=== PATIENT | female | born 1995 | race Caucasian/White ===

== ENCOUNTER 2021-08-16 09:44 | Emergency (ER) | payer OTHER, SELFPAY ==
[2021-08-16 11:29] VITALS: BP 148/88; PULSE 70; RESP 16; TEMP 36.3; O2SAT 100; BMI 36.6
--- NOTE | 2021-08-16 11:43 | HMH.EDUTC ---
[facility] [place] Clinical Impression: Laceration Disposition: Home, Self-Care Condition on Discharge: Good Instructions: How to Care for a Laceration After Repair, DI for Laceration Repair Additional Instructions: Suture instructions: You have required stitches today. Please read the following instructions so you know how to care for them: 1. Keep wound area dry for the first 24 hours. 2 May clean gently with mild soap and water, after 48 hours to prevent crusting over suture knots. 3. You may shower if your provider gives permission but do not take a bath until the skin is healed.. 4. Never leave a wet dressing or Band-Aid on your stitches as this allows bacteria to reach the area and may cause infection. Band-aids can cause the wound to sweat and not recommended to wear for long periods of time Watch for signs of infection: Increasing redness, tenderness or warmth around the suture site Unusual swelling around the site Appearance of pus around each suture or any red streaks Fever If you develop any of the above signs or symptoms of infection, Follow up with Family Physician immediately 5. Suture removal in _7-10___days 6. Return to [facility] or follow up with family doctor for removal. This can be done by any medical provider during regular hours on Sunday through Sunday, by appointment. Prescriptions: Amoxicillin/Potassium Clav [Amox-Clav 875-125 mg Tablet] 1 tab PO BID #14 tab Transmission Status: Received by [id number] Referrals: Provider,Referral, [Primary Care Provider] - As needed Time of Disposition: 13:08 Medical Decision Making - Mariano Inquiry Pt receiving controlled substance: No Mariano was queried for this patient: No Vital Signs: 08/16/21 11:29 Temperature 97.4 F L Temperature Source Temporal Artery Scan Pulse Rate [Left] 70 Respiratory Rate 16 Blood Pressure [Right Arm] 148/88 H Blood Pressure Mean [Right Arm] 108 02 Sat by Pulse Oximetry 100 Orders (Tests/Meds): ED MEDICATIONS Discontinued Medications Generic Name Dose Route Start Last Admin Trade Name Freq PRN Reason Stop Dose Admin Lidocaine HCl 2 ml 08/16/21 13:00 Lidocaine 1% Pf 2ml Ampule SQ 08/16/21 13:01 ONCE ONE Tetanus/Reduced Diphtheria/Acell Pertussis 0.5 ml 08/16/21 12:50 Tet/Diphth/Pert-Adult 0.5ml Syringe IM 08/16/21 12:51 .ONCE ONE [facility] HPI - General Stated complaint: dog bite 08/16 lt breast Time Seen by Provider: 08/16/21 11:43 Mode of Arrival: Ambulatory Source of Information: Patient Limitations: No Limitations Description of Symptoms (Recalled from Triage Doc. by RN): pt states her dogs were fighting this am. when she tried to break the up she was bitten by her lab. pt presents with a lac about an inch long on the bottom part of her L areola. HEENT Symptoms (Recalled from RN notes): No Resp Symptoms (Recalled from RN notes): No Skin Symptoms (Recalled from RN notes): Yes MS Symptoms (Recalled from RN notes): No Functional Status (Recalled from RN notes): wnl - History of Present Illness Provider Complaint: Patient states that she was at home when two of her dogs started fighting States that she was trying to seperate them when her lab snapped at the other dog but bite her on the left breast just below her nipple States that she noticed she had a laceration there about an inch long so she came in to get it checked out - Related Data Previous Rx's Medication Instructions Recorded Amoxicillin/Potassium Clav 1 tab PO BID #14 tab 08/16/21 [Amox-Clav 875-125 mg Tablet] Allergies Allergy/AdvReac Type Severity Reaction Status Date / Time acetaminophen [From Tylenol] Allergy Verified 08/16/21 11:38 - Worker's Comp Is this a Worker's Comp case?: No [facility] History - Hepatitis A Screen Drug use history?: No High risk sexual behaviors?: No History of sexually transmitted infection?: No Currently employed?: No Childcare worker?: No Do you have i
[2021-08-16 13:20] VITALS: BP 148/88; PULSE 70; RESP 16; TEMP 36.3
[2021-08-16 13:43] LABS: UTC Pregnancy Test, Urine Negative (Negative)
== END 2021-08-16 13:22 | disposition home or self-care (01) ==
PROVIDERS: Emergency Provider Nurse Practitioner
DX: S21.012A Laceration without foreign body of left breast, initial encounter (principal); W54.0XXA Bitten by dog, initial encounter; Y92.019 Unspecified place in single-family (private) house as the place of occurrence of the external cause; Z23 Encounter for immunization
CPT/HCPCS: 12001; 81025; 90471; 96372; 99213; G0463

== ENCOUNTER → 2021-11-23 11:59 | Outpatient (CLI) | payer OTHER, SELFPAY ==
[2021-11-23 13:15] LABS: HCG,Quantitative 20 mIU/ml (0-5.42)
== END ==
PROVIDERS: Visit Provider Obstetrics & Gynecology
DX: N92.6 Irregular menstruation, unspecified (principal)
CPT/HCPCS: 36415; 84702

== ENCOUNTER → 2021-11-30 10:54 | Outpatient (CLI) | payer OTHER, SELFPAY ==
[2021-11-30 12:05] LABS: HCG,Quantitative 45 mIU/ml (0-5.42)
== END ==
PROVIDERS: Visit Provider Obstetrics & Gynecology
DX: Z34.90 Encounter for supervision of normal pregnancy, unspecified, unspecified trimester (principal)
CPT/HCPCS: 36415; 84702

== ENCOUNTER → 2021-12-02 09:18 | Outpatient (CLI) | payer OTHER, SELFPAY ==
[2021-12-02 10:42] LABS: HCG,Quantitative 82 mIU/ml (0-5.42)
[2021-12-06 09:13] LABS: Progesterone 7.1 ng/mL (.)
== END ==
PROVIDERS: Visit Provider Obstetrics & Gynecology
DX: Z34.90 Encounter for supervision of normal pregnancy, unspecified, unspecified trimester (principal); N92.6 Irregular menstruation, unspecified
CPT/HCPCS: 36415; 84144; 84702

== ENCOUNTER → 2021-12-05 10:37 | Outpatient (CLI) | payer OTHER, SELFPAY ==
[2021-12-05 11:45] LABS: HCG,Quantitative 28 mIU/ml (0-5.42)
[2021-12-06 09:13] LABS: Progesterone 1.1 ng/mL (.)
== END ==
PROVIDERS: Visit Provider Obstetrics & Gynecology
DX: Z34.90 Encounter for supervision of normal pregnancy, unspecified, unspecified trimester (principal)
CPT/HCPCS: 36415; 84144; 84702

== ENCOUNTER 2022-08-31 12:14 | Emergency (ER) | payer OTHER, SELFPAY ==
[2022-08-31 12:40] VITALS: BP 139/93; PULSE 65; O2SAT 100
[2022-08-31 12:42] VITALS: BP 139/93; PULSE 69; RESP 18; TEMP 36.4; O2SAT 100; BMI 41.5
--- NOTE | 2022-08-31 12:43 | PC.NURSE ---
Spoke with Alyssa in care management regarding patient admission
--- NOTE | 2022-08-31 12:49 | HMH.EDGENADL ---
Discharge Plan Disposition Patient Disposition: Home, Self-Care Prescriptions Prescriptions: No Action norethindrone acetate [Aygestin] 5 mg tablet 5 mg PO DIRECTED Qty: 90 0RF Rx Instructions: 1.Take 1 pill every 4 hours until bleeding has stopped for a full 24 hours. This may take 2-4 days. 2.Then take 1 pill every 6 hours for 2 days. 3.Then take 1 pill every 8 hours for 2 days. 4.Then take 1 pill every 12 hours for the next 21 days. 5.Once Aygestin is finished, expect another cycle within a week. 6.Most common side effects are bloating (fluid retention), and mood swings. Referrals Follow up/Referrals: Provider,Referral, MD [Primary Care Provider] - See instructions Activity Restrictions/Add. Instructions Additional Instructions/Restrictions: Please get your outpatient prescription filled by Dr. Alcantar sent. Your hemoglobin and hematocrit are normal today no signs of any other emergent medical condition please return to the emergency department any worsening of your symptoms otherwise follow-up with [facility] for trial and error of outpatient oral hormone therapy to try to get your dysfunctional uterine bleeding under control. Clinical Impressions Clinical Impression: Abnormal uterine bleeding Discharge ED Provider: Jhoana Davies General Adult HPI General Chief complaint: Vaginal Bleeding Stated complaint: been on period since jul 11, changing pad every hr Time Seen by Provider: 08/31/22 12:49 Mode of Arrival: Ambulatory Source of Information: Patient Limitations: No Limitations Description of Symptoms (Recalled from ER Triage Doc. by RN): Presents via POV d/t ongoing vaginal bleeding since Jun 2022. Pt was seen by Dr. Bobo with US scheduled for 09/06/22. Pt reports worsening bleeding (saturating a pad/hr) and large clots x 3 days. (Dark red blood). Hx of PCOS. 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 Pt called [facility] office prior which instructed her to go to ED for further evaluation. [facility] REP also called in progesterone Rx instructing to start after ED visit. History of Present Illness HPI narrative: 26-year-old female presents today with persistent and worsening vaginal bleeding associate with painful heavy periods. She states that this has been going on for several years she has a known history of PCOS since she moved to [place] a few years ago and has been followed by Dr. Bobo where she has an outpatient ultrasound scheduled. She has had ongoing bleeding for this. Since June and has been relatively mild up until 3 days ago when she started bleeding through 1 pad per day. She has associated abdominal pain which is consistent with heavy painful. She has had in the past. She does not carry a diagnosis of endometriosis that she is aware of. She also called Dr. Alcantar today had a prescription of progesterone that was sent into her pharmacy which she was instructed to get after she comes to the emergency department today. She does feel little bit weak and lightheaded but otherwise is asymptomatic. She has been passing some clots and has not had a urine test during this episode. Before this her last period was in April. Related Data Previous Rx's Medication Instructions Recorded norethindrone acetate 5 mg tablet 5 mg PO DIRECTED #90 tabs 08/31/22 (Aygestin) Allergies Allergy/AdvReac Type Severity Reaction Status Date / Time acetaminophen [From Tylenol] Allergy Verified 08/23/22 15:19 [facility] Disclaimer: The information contained in this section may have been updated after the patient was seen, as this information can be updated by other users. Social History (Updated 08/23/22 @ 15:27 by HEAVENLY Bowman) Smoking Status: Never smoker alcohol intake: never substance use type: denies use current occupational status: employed Travel in the last 8 weeks: None ROS Obtained: Yes All systems reviewed & no additional complaints except as documented Physical Exam Gen
[2022-08-31 12:50] LABS: Microscopic, Urine URINE MICROSCOPIC (MICROSCOPIC)
[2022-08-31 12:53] LABS: Appearance,Urine SL CLOUDY (Clear); Bilirubin,Urine Negative (Negative); Blood, Urine 3+ (Negative); Color,Urine RED (Yellow); Glucose,Urine (UA) Negative (Negative); Ketones,Urine Negative (Negative); Leukocyte Esterase,Urine TRACE (Negative); Nitrate,Urine Negative (Negative); PH,Urine 7.5 (5.0-8.5); Protein,Urine TRACE (Negative); Urobilinogen,Urine 0.2 EU/dl (0.2)
[2022-08-31 12:55] LABS: Urine Pregnancy, HCG Qual. Negative (Negative)
[2022-08-31 13:05] LABS: RBC,Urine 20-50 #/hpf (0-3)
[2022-08-31 13:08] LABS: Basophils # 0.1 K/mm3 (0-0.2); Basophils % 0.6 % (0.1-2.0); Eosinophils # 0.3 K/mm3 (0.0-0.4); Eosinophils % 3.8 % (0.1-12.0); Hemoglobin 13.6 g/dL (12.2-16.2); Lymphocytes # 2.8 K/mm3 (0.7-4.5); Lymphocytes % 31.8 % (10-50); Mean Corpuscular Hemoglobin 27.9 pg (27.0-31.2); Mean Corpuscular Volume 89.9 fl (81-99); Mean Platelet Volume 7.6 fl (7.4-10.4); Monocytes # 0.7 K/mm3 (0.1-1.0); Monocytes % 7.6 % (1.7-9.3); Neutrophils # 4.9 K/mm3 (1.8-7.8); Neutrophils % 56.2 % (37.0-80.0); Platelet Count 348 K/mm3 (142-424); Red Cell Distribution Width 13.4 % (11.5-17.5); White Blood Count 8.7 K/mm3 (4.8-10.8)
[2022-08-31 13:09] LABS: Chloride 104 mmol/L (98-107); Sodium 138 mmol/L (136-145)
[2022-08-31 13:11] LABS: Alanine Aminotransferase 22 U/L (12-78); Aspartate Amino Transferase 25 U/L (14-36); Blood Urea Nitrogen 4 mg/dl (7-17); Creatinine Clearance Estimated 91 mL/min (50-200); Estimated Glomerular Filt Rate 100 ml/min (>60); GFR (African American) 121 ML/MIN (>60)
[2022-08-31 13:12] LABS: Albumin Level 4.5 g/dl (3.5-5.0); Albumin/Globulin Ratio 1.6 (1.1-1.8); Alkaline Phosphatase 73 U/L (38-126); Bilirubin,Total 0.4 mg/dl (0.2-1.3); Calcium 9.1 mg/dl (8.4-10.2); Carbon Dioxide 27 mmol/L (22.0-30.0); Globulin 2.9 g/dL (1.3-3.2); Glucose 83 mg/dl (74-100); Total Protein,Serum 7.4 g/dl (6.3-8.2)
--- NOTE | 2022-08-31 13:25 | PC.NURSE ---
Warm blankets provided. Pt updated on plan of care.
[2022-08-31 13:43] LABS: Thyroid Stimulating Hormone 1.56 uIU/mL (0.465-4.68)
[2022-08-31 14:27] VITALS: BP 131/79; PULSE 61; O2SAT 100
[2022-08-31 14:32] VITALS: BP 131/79; PULSE 60; RESP 16; TEMP 36.6; O2SAT 100
== END 2022-08-31 14:33 | disposition home or self-care (01) ==
PROVIDERS: Emergency Provider Student in an Organized Health Care Education/Training Program
DX: N93.9 Abnormal uterine and vaginal bleeding, unspecified (principal); R10.9 Unspecified abdominal pain
CPT/HCPCS: 80053; 81001; 81025; 84443; 85025; 96360; 96374; 99284; 99285

== ENCOUNTER → 2022-09-06 13:14 | Outpatient (CLI) | payer OTHER, SELFPAY ==
--- NOTE | 2022-09-06 13:14 | US_ITS ---
FINAL REPORT CLINICAL HISTORY: irreg. periods, pcos FINDINGS: Transvaginal sonographic images of the pelvis were obtained. The uterus measures 6.8 x 3.2 x 4.9 cm. The endometrium measures 11 mm. By history, the patient has a bicornuate uterus however not well seen on today's exam. There is an 11 x 6 mm echogenic focus in the endometrium, endometrial polyp is not excluded. The right ovary is normal measuring 2.8 cm. The left ovary is normal measuring 3.2 cm. No adnexal mass is identified. No free fluid is seen. IMPRESSION: Echogenic focus in the endometrium, endometrial polyp is not excluded. Reviewed, Interpreted and Dictated by Gurdeep Aguirre III, MD Transcribed by Diane Kirby Authenticated and [facility]
== END ==
LOC: RAD 13:14
PROVIDERS: Visit Provider Nurse Practitioner Obstetrics & Gynecology
DX: E28.2 Polycystic ovarian syndrome (principal); N92.6 Irregular menstruation, unspecified
CPT/HCPCS: 76830

== ENCOUNTER 2022-11-10 07:14 | Emergency (ER) | payer OTHER, SELFPAY ==
[2022-11-10 07:15] VITALS: BP 146/100; PULSE 83; RESP 16; TEMP 36.5; O2SAT 99; BMI 41.5
--- NOTE | 2022-11-10 07:57 | HMH.EDGENADL ---
Discharge Plan Disposition Patient Disposition: Home, Self-Care Prescriptions Prescriptions: New prednisone 50 mg tablet 50 mg PO DAILY 5 Days Qty: 5 0RF Rx Instructions: Please begin 1 day after ED visit cyclobenzaprine 5 mg tablet 5 mg PO TID PRN (Reason: muscle spasm) 5 Days Qty: 15 0RF No Action ibuprofen 800 mg tablet 800 mg PO Q8H PRN (Reason: pain) 30 Days Qty: 90 0RF Referrals Follow up/Referrals: Provider,Referral, MD [Primary Care Provider] - See instructions Activity Restrictions/Add. Instructions Additional Instructions/Restrictions: Your symptoms are consistent with sciatica most likely from a herniated disc. If your symptoms persist beyond several weeks please follow-up with your primary care doctor or a spine surgeon to get an outpatient MRI. Please return with any lower extremity paralysis numbness between your legs urinary retention or urinary or bowel incontinence. Clinical Impressions Clinical Impression: Sciatica of left side Discharge ED Provider: Nu (ED)Seth General Adult HPI General Chief complaint: PAIN Stated complaint: AO@home 10/13 Lower Back pain LT leg pain Time Seen by Provider: 11/10/22 07:57 Mode of Arrival: Ambulatory Source of Information: Patient Limitations: No Limitations Description of Symptoms (Recalled from ER Triage Doc. by RN): Presents to ED with complaints of atraumatic left sided back pain that radiates down her leg x 3 weeks. Patient reports she went to the chiropractor a week and a half ago with no relief of pain. Patient further reports she has been taking 1,000mg of ibuprofen that was given to her by Miguel for severe periods with no relief. Denies bowel/bladder incontinence. History of Present Illness HPI narrative: Patient is a 26-year-old female presenting today with left sided back pain that is radiating down her left leg for the last 3 days. She states that she threw her back out 3 weeks ago but that is been pain in her SI joint its been localized and this is a common phenomenon for her. However over the last 3 days she is having radiating pain down the left lateral and posterior aspect of her leg shooting all the way down past her knee. She is having difficulty getting comfortable. She has no saddle anesthesia or urinary retention urinary or bowel incontinence lower extremity weakness history of injection drug use fevers or cancer. She has been taking 800 mg of ibuprofen that she has prescribed for her menstrual cramps. Related Data Previous Rx's Medication Instructions Recorded ibuprofen 800 mg tablet 800 mg PO Q8H PRN pain 30 days #90 09/13/22 tabs cyclobenzaprine 5 mg tablet 5 mg PO TID PRN muscle spasm 5 11/10/22 days #15 tabs prednisone 50 mg tablet 50 mg PO DAILY 5 days #5 tabs 11/10/22 Allergies Allergy/AdvReac Type Severity Reaction Status Date / Time acetaminophen [From Tylenol] Allergy Verified 09/25/22 15:01 [facility] Disclaimer: The information contained in this section may have been updated after the patient was seen, as this information can be updated by other users. Family History (Updated 09/25/22 @ 15:06 by HEAVENLY Bowman) Other Cancer Diabetes Hypertension Social History Smoking Status: Never smoker alcohol intake: never substance use type: denies use current occupational status: employed Travel in the last 8 weeks: None ROS Obtained: Yes All systems reviewed & no additional complaints except as documented Physical Exam General General appearance: alert Respiratory Respiratory exam: Present normal lung sounds bilaterally; Absent respiratory distress Cardiovascular Cardiovascular exam: Present regular rate; Absent tachycardia Back Exam Back exam: Present straight leg raise (L) (Positive) and other (Normal strength with dorsiflexion plantarflexion of the great toe and ankle normal extension and flexion at th
--- NOTE | 2022-11-10 08:04 | PC.NURSE ---
Dr. Davies at [facility] for pt eval
[2022-11-10 08:40] VITALS: BP 146/96; PULSE 61; RESP 16; TEMP 36.5; O2SAT 99
== END 2022-11-10 08:46 | disposition home or self-care (01) ==
PROVIDERS: Emergency Provider Emergency Medicine
DX: M54.42 Lumbago with sciatica, left side (principal); I10 Essential (primary) hypertension; E11.9 Type 2 diabetes mellitus without complications
CPT/HCPCS: 99283; 99284

== ENCOUNTER → 2022-11-16 14:40 | Outpatient (CLI) | payer OTHER, SELFPAY ==
[2022-11-16 15:34] LABS: Basophils % 0.3 % (0.1-2.0); Eosinophils # 0.2 K/mm3 (0.0-0.4); Eosinophils % 1.7 % (0.1-12.0); Hematocrit 39.6 % (37.0-47.0); Lymphocytes # 4.4 K/mm3 (0.7-4.5); Lymphocytes % 31.3 % (10-50); Mean Corpuscular HGB Conc 32.8 g/dL (31.8-35.4); Mean Corpuscular Hemoglobin 27.3 pg (27.0-31.2); Mean Corpuscular Volume 83.4 fl (81-99); Monocytes # 1.1 K/mm3 (0.1-1.0); Monocytes % 7.7 % (1.7-9.3); Neutrophils # 8.4 K/mm3 (1.8-7.8); Platelet Count 373 K/mm3 (142-424); Red Blood Count 4.75 M/mm3 (4.20-5.40); Red Cell Distribution Width 13.5 % (11.5-17.5); White Blood Count 14.2 K/mm3 (4.8-10.8)
[2022-11-16 15:36] LABS: Chloride 100 mmol/L (98-107); Sodium 139 mmol/L (136-145)
[2022-11-16 15:39] LABS: Alanine Aminotransferase 24 U/L (12-78); Albumin Level 4.1 g/dl (3.5-5.0); Albumin/Globulin Ratio 1.5 (1.1-1.8); Alkaline Phosphatase 72 U/L (38-126); Aspartate Amino Transferase 25 U/L (14-36); Bilirubin,Total 0.2 mg/dl (0.2-1.3); Blood Urea Nitrogen 8 mg/dl (7-17); Carbon Dioxide 30 mmol/L (22.0-30.0); Estimated Glomerular Filt Rate 100 ml/min (>60); GFR (African American) 121 ML/MIN (>60); Globulin 2.8 g/dL (1.3-3.2); Total Protein,Serum 6.9 g/dl (6.3-8.2)
[2022-11-16 15:40] LABS: Calcium 9.5 mg/dl (8.4-10.2); Glucose 74 mg/dl (74-100)
[2022-11-16 15:56] LABS: HCG,Quantitative 34 mIU/ml (0-5.42)
== END ==
PROVIDERS: Visit Provider Nurse Practitioner Obstetrics & Gynecology
DX: N93.9 Abnormal uterine and vaginal bleeding, unspecified (principal)
CPT/HCPCS: 36415; 80053; 84702; 85025

== ENCOUNTER → 2022-11-18 14:09 | Outpatient (CLI) | payer OTHER, SELFPAY | PROVIDERS: Visit Provider Nurse Practitioner Obstetrics & Gynecology | DX: Z34.90 Encounter for supervision of normal pregnancy, unspecified, unspecified trimester (principal) ==

== ENCOUNTER → 2022-11-20 15:06 | Outpatient (CLI) | payer OTHER, SELFPAY ==
[2022-11-18 15:15] LABS: HCG,Quantitative 24 mIU/ml (0-5.42)
[2022-11-20 19:37] LABS: HCG,Quantitative 40 mIU/ml (0-5.42)
== END ==
LOC: LAB 15:07
PROVIDERS: Visit Provider Nurse Practitioner Obstetrics & Gynecology
DX: Z34.90 Encounter for supervision of normal pregnancy, unspecified, unspecified trimester (principal); N93.9 Abnormal uterine and vaginal bleeding, unspecified
CPT/HCPCS: 36415; 84144; 84702

== ENCOUNTER → 2022-11-27 15:48 | Outpatient (CLI) | payer OTHER, SELFPAY ==
[2022-11-27 17:33] LABS: HCG,Quantitative 17 mIU/ml (0-5.42)
== END ==
LOC: LAB 15:48
PROVIDERS: Visit Provider Nurse Practitioner Obstetrics & Gynecology
DX: Z32.01 Encounter for pregnancy test, result positive (principal)
CPT/HCPCS: 36415; 84702

== ENCOUNTER → 2022-11-30 16:36 | Outpatient (CLI) | payer OTHER, SELFPAY ==
[2022-11-30 18:05] LABS: HCG,Quantitative 9 mIU/ml (0-5.42)
== END ==
LOC: LAB 16:36
PROVIDERS: Visit Provider Nurse Practitioner Obstetrics & Gynecology
DX: O02.1 Missed abortion (principal)
CPT/HCPCS: 36415; 84702

== ENCOUNTER → 2022-12-18 16:17 | Outpatient (CLI) | payer OTHER, SELFPAY ==
[2022-12-18 18:03] LABS: HCG,Quantitative < 2 mIU/ml (0-5.42)
[2022-12-20 12:09] LABS: Progesterone 10.2 ng/mL (.)
== END ==
LOC: LAB 16:17
PROVIDERS: Obstetrics & Gynecology; Visit Provider Nurse Practitioner Obstetrics & Gynecology
DX: Z01.812 Encounter for preprocedural laboratory examination (principal); N93.9 Abnormal uterine and vaginal bleeding, unspecified; N84.0 Polyp of corpus uteri
CPT/HCPCS: 36415; 84144; 84702

== ENCOUNTER → 2023-01-15 15:03 | Outpatient (CLI) | payer OTHER, BC, SELFPAY ==
[2023-01-15 15:36] LABS: Basophils # 0.1 K/mm3 (0-0.2); Basophils % 0.6 % (0.1-2.0); Eosinophils # 0.5 K/mm3 (0.0-0.4); Hematocrit 39.5 % (37.0-47.0); Lymphocytes % 26.6 % (10-50); Mean Corpuscular HGB Conc 32.9 g/dL (31.8-35.4); Mean Corpuscular Hemoglobin 28.5 pg (27.0-31.2); Mean Corpuscular Volume 86.4 fl (81-99); Mean Platelet Volume 8.4 fl (7.4-10.4); Monocytes # 0.7 K/mm3 (0.1-1.0); Monocytes % 5.8 % (1.7-9.3); Neutrophils % 62.9 % (37.0-80.0); Platelet Count 345 K/mm3 (142-424); Red Blood Count 4.57 M/mm3 (4.20-5.40); Red Cell Distribution Width 13.7 % (11.5-17.5); White Blood Count 11.1 K/mm3 (4.8-10.8)
[2023-01-15 18:07] LABS: HCG Qualitative, Serum Negative (Negative)
[2023-01-15 20:32] LABS: Alanine Aminotransferase 26 U/L (12-78); Albumin Level 4.4 g/dl (3.5-5.0); Albumin/Globulin Ratio 1.6 (1.1-1.8); Alkaline Phosphatase 71 U/L (38-126); Anion Gap 17.4 mEq/L (5-15); Aspartate Amino Transferase 24 U/L (14-36); Blood Urea Nitrogen 5 mg/dl (7-17); Calcium 9.7 mg/dl (8.4-10.2); Carbon Dioxide 23 mmol/L (22.0-30.0); Chloride 104 mmol/L (98-107); Estimated Glomerular Filt Rate 100 ml/min (>60); GFR (African American) 121 ML/MIN (>60); Globulin 2.7 g/dL (1.3-3.2); Glucose 84 mg/dl (74-100); Potassium 4.4 mmoL/L (3.5-5.1); Sodium 140 mmol/L (136-145); Total Protein,Serum 7.1 g/dl (6.3-8.2)
[2023-01-15 20:34] LABS: Bilirubin,Total 0.1 mg/dl (0.2-1.3)
== END ==
PROVIDERS: Visit Provider Nurse Practitioner Obstetrics & Gynecology
DX: Z01.818 Encounter for other preprocedural examination (principal)
CPT/HCPCS: 36415; 80053; 84703; 85025

== ENCOUNTER 2023-01-18 07:05 | Day surgery (SDC) | payer OTHER, BC, SELFPAY ==
[2022-11-30 14:25] VITALS: BMI 39.6
[2023-01-16 13:19] VITALS: BMI 40.0
[2023-01-18] VITALS (9 sets, daily range): BP systolic 119–147; BP diastolic 71–85; PULSE 60–78; RESP 9–18; TEMP 36.4–36.6; O2SAT 95–100
--- NOTE | 2023-01-18 07:38 | P.PNANES_ITS ---
[facility] Disclaimer: The information contained in this section may have been updated after the patient was seen, as this information can be updated by other users. Medical History Migraine Surgical History History of surgery of uterus Family History Other Cancer Diabetes Hypertension Social History Smoking Status: Never smoker alcohol intake: never substance use type: denies use current occupational status: employed Travel in the last 8 weeks: None [facility] Anesthesia Checklist Patient Identification Patient Identification: Arm Band and Verbal (Name & ) Structural Data Admitted From: Home Planned Operative Procedure/s: Hyst/D & C/ Myosure Consent for Planned Operative Procedure(s) Verified: Yes NPO Status Verified Time NPO: 00:00 Chart Verification Results Verified: CBC and HCG Additional verifications Anesthesia Reactions: No Airway Assessment Mallampati Score:: Class II C-Spine Mobility Assessed: Yes TMJ Mobility Assessed: Yes Dentition: Good Dentition Neurological Assessment Level of Consciousness: Awake Hx Seizures: No Numbness or tingling in extremities: No Anesthesia Plan Anesthesia Risk discussed: Yes Anesthesia Plan: Verified ASA Class: II Anesthesia Type: General
--- NOTE | 2023-01-18 09:45 | P.PNANES_ITS ---
[facility] Anesthesia Record Part I Anesthesia Record I Intake, IV Amount: 1,000 Hydration: Adequate Estimated blood loss (mL): 50 Urine output (mL): 0 Blood Pressure: 138/85 SaO2: 97 Pulse Rate: 73 Airway Patency: Patent Respiratory Rate: 12 Temperature: 97.5 F Patient is:: Awake and Stable Stable to PACU at:: 09:15
--- NOTE | 2023-01-18 09:51 | P.OP_ITS ---
Date of procedure: 01/18/23 Pre-op Diagnosis:: Irregular bleeding, possible endometrial polyps Post-op Diagnosis:: Irregular bleeding endometrial polyps Procedure performed:: Hysteroscopy, D&C, MyoSure polypectomy Surgeon:: Roger Rivera MD BOW REPAIRER CUSTOM:: Bryce Rodriguez Anesthesia: LMA Estimated blood loss (mL): 50 Clinical Note:: She is a 27-year-old lady who has had issues with infertility. She had a previous resection of a uterine septum and was having irregular periods. An ultrasound showed that she had possible polyps. As result of that she was offered hysteroscopy, D&C and polypectomy. Operative findings:: At the uterine cornua near the opening to the right tubal ostia there were multiple small polyps. The endometrium appeared thin. The rest of the endometrial cavity appeared normal. Operative note:: She was taken the operating room where LMA anesthesia was found be adequate. She is prepared NovaSure fashion without any position. Weighted speculum placed in vagina and the anterior lip of the cervix was grasped with a tenaculum. Campbell dilators used to dilate the cervix to approximately 7 mm. Then using MyoSure hysteroscope I enter the uterine cavity. I was really having difficulty seeing the entire cavity because there was not much rinsing of fluid through the scope. As result of that I changed to a regular hysteroscope and the findings were as previously dictated. I then increased the pressure in the MyoSure device to 120 mm and was able to see within the uterine cavity well. Using the MyoSure device I was able to easily resect all the small polyps from the right cornua of the uterus. This seemed to clear out that right cornua and I could also see the opening to the tubal ostia there. The opposite side appeared normal. At the end of the procedure I then injected approximately 20 cc of 0.25% ropivacaine at the 7:00 and 9 o'clock position of the cervix. She tolerated seizure well and was taken the recovery room in excellent cond ition. All sponge and instrument counts were correct. The estimated blood loss was less than 50 cc. Condition: stable Disposition: PACU Specimens:: Endometrial curettings, endometrial polyps Complications:: 9.
--- NOTE | 2023-01-18 10:00 | SUR.PHASEII ---
d/t dr holly being out of town at the time of follow-up pt will see Dr Toi Tanner in the office.
--- NOTE | 2023-01-21 20:33 | EXP.ANES.II ---
[facility] Anesthesia Record Part II Anesthesia Record Part II Discharge Time: 10:15 Destination: Surgical Day Care (OP Surgery) PACU nurse assessment reviewed?: Yes Patient Condition:: Good Anesthesia Complications:: None Swallowing reflex intact?: Yes Airway Patency: Patent Cyanosis?: No Blood Pressure: 128/81 SaO2: 99 Respiratory Rate: 9 Pulse Rate: 66 Temperature: 97.5 F Mental Status: Alert & Oriented Pain level:: 0 Nausea and/or vomitting:: None Intake, IV Amount: 0 Hydration: Adequate
[2023-01-21 20:34] VITALS: BP 128/81; PULSE 66; RESP 9; TEMP 36.4; O2SAT 99
== END 2023-01-18 10:46 | disposition home or self-care (01) ==
PROVIDERS: Visit Provider Nurse Practitioner Obstetrics & Gynecology
PROC: (CPT 58558; principal; 2023-01-18 08:45)
DX: N92.6 Irregular menstruation, unspecified (principal); N84.0 Polyp of corpus uteri; N97.9 Female infertility, unspecified
CPT/HCPCS: 58558; 96374; J2405

== ENCOUNTER 2023-08-31 13:46 | Outpatient (CLI) | payer OTHER, SELFPAY ==
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
== END 2023-08-31 23:59 ==
LOC: RAD 13:47
PROVIDERS: PCP Student in an Organized Health Care Education/Training Program; Visit Provider Student in an Organized Health Care Education/Training Program
DX: M79.672 Pain in left foot (principal); M25.572 Pain in left ankle and joints of left foot
CPT/HCPCS: 73590; 73630

== ENCOUNTER 2023-10-13 14:01 | Emergency (ER) | payer SELFPAY ==
[2023-10-13 14:03] VITALS: BP 142/90; PULSE 63; RESP 18; TEMP 37.1; O2SAT 96; BMI 34.0
[2023-10-13 14:10] VITALS: BP 142/90
[2023-10-13 14:30] VITALS: BP 154/99
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
[2023-10-13] MEDS: METHOCARBAMOL 500MG TABLET 1500 MG PO (14:53)
[2023-10-13] MEDS: KETOROLAC 30MG/ML VIAL 15 MG IV (14:53)
[2023-10-13 15:01] VITALS: BP 128/59
[2023-10-13 15:10] LABS: HCG Qualitative, Serum Negative (Negative)
[2023-10-13] MEDS: IOPAMIDOL-370 (76%);100ML BOTTLE 100 ML IV (15:33)
[2023-10-13] MEDS: SODIUM CHLORIDE 0.9% 10ML SYR (RAD ONLY) 10 ML IV (15:33)
[2023-10-13] MEDS: 0.9 % SODIUM CHLORIDE 50 ML VIAL IV (15:33)
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
[2023-10-13 15:38] LABS: Basophils # 0.1 K/mm3 (0-0.2); Basophils % 1.2 % (0.1-2.0); Eosinophils # 0.5 K/mm3 (0.0-0.4); Eosinophils % 5.7 % (0.1-12.0); Hematocrit 42.7 % (37.0-47.0); Hemoglobin 13.6 g/dL (12.2-16.2); Lymphocytes # 2.6 K/mm3 (0.7-4.5); Lymphocytes % 30.6 % (10-50); Mean Corpuscular Volume 90.7 fl (81-99); Mean Platelet Volume 8.3 fl (7.4-10.4); Monocytes # 0.5 K/mm3 (0.1-1.0); Monocytes % 5.8 % (1.7-9.3); Neutrophils # 4.7 K/mm3 (1.8-7.8); Neutrophils % 56.6 % (37.0-80.0); Platelet Count 347 K/mm3 (142-424); Red Cell Distribution Width 13.9 % (11.5-17.5); White Blood Count 8.4 K/mm3 (4.8-10.8)
[2023-10-13 15:40] LABS: Chloride 106 mmol/L (98-107); Potassium 4.5 mmoL/L (3.5-5.1); Sodium 139 mmol/L (136-145)
[2023-10-13 15:43] LABS: Alanine Aminotransferase 27 U/L (12-78); Albumin Level 4.2 g/dl (3.5-5.0); Albumin/Globulin Ratio 1.3 (1.1-1.8); Alkaline Phosphatase 66 U/L (38-126); Anion Gap 10.5 mEq/L (5-15); Aspartate Amino Transferase 28 U/L (14-36); Bilirubin,Total 0.3 mg/dl (0.2-1.3); Blood Urea Nitrogen 6 mg/dl (7-17); Calcium 9.7 mg/dl (8.4-10.2); Carbon Dioxide 27 mmol/L (22.0-30.0); Creatinine Clearance Estimated 120 mL/min (50-200); Estimated Glomerular Filt Rate 75 ml/min (>60); GFR (African American) 90 ML/MIN (>60); Globulin 3.2 g/dL (1.3-3.2); Glucose 80 mg/dl (74-100); Total Protein,Serum 7.4 g/dl (6.3-8.2)
[2023-10-13 15:57] LABS: Troponin I < 0.01 ng/ml (0.00-0.034)
[2023-10-13 16:00] VITALS: BP 135/84
[2023-10-13 16:35] VITALS: BP 131/88; PULSE 83; RESP 18; TEMP 36.6; O2SAT 93
== END 2023-10-13 16:42 | disposition home or self-care (01) ==
PROVIDERS: Emergency Medicine; Emergency Provider Emergency Medicine; PCP Student in an Organized Health Care Education/Training Program
DX: R06.02 Shortness of breath (principal); M54.6 Pain in thoracic spine; M62.838 Other muscle spasm; V49.40XA Driver injured in collision with unspecified motor vehicles in traffic accident, initial encounter; Y92.410 Unspecified street and highway as the place of occurrence of the external cause
CPT/HCPCS: 70450; 71275; 72125; 72128; 72131; 74174; 80053; 84484; 84703; 85025; 96374; 99285; Q9967

== ENCOUNTER 2024-01-04 16:52 | Outpatient (CLI) | payer OTHER, SELFPAY ==
[2024-01-04 17:35] LABS: Basophils # 0.1 K/mm3 (0-0.2); Basophils % 0.8 % (0.1-2.0); Eosinophils # 0.4 K/mm3 (0.0-0.4); Eosinophils % 3.8 % (0.1-12.0); Hematocrit 40.3 % (37.0-47.0); Hemoglobin 13.8 g/dL (12.2-16.2); Lymphocytes # 2.7 K/mm3 (0.7-4.5); Lymphocytes % 25.3 % (10-50); Mean Corpuscular HGB Conc 34.3 g/dL (31.8-35.4); Mean Corpuscular Hemoglobin 31.2 pg (27.0-31.2); Mean Corpuscular Volume 90.9 fl (81-99); Mean Platelet Volume 8.2 fl (7.4-10.4); Monocytes # 0.7 K/mm3 (0.1-1.0); Monocytes % 6.2 % (1.7-9.3); Neutrophils # 6.8 K/mm3 (1.8-7.8); Neutrophils % 63.9 % (37.0-80.0); Platelet Count 317 K/mm3 (142-424); Red Blood Count 4.44 M/mm3 (4.20-5.40); Red Cell Distribution Width 13.7 % (11.5-17.5); White Blood Count 10.6 K/mm3 (4.8-10.8)
[2024-01-04 18:05] LABS: Alanine Aminotransferase 28 U/L (12-78); Albumin Level 4.6 g/dl (3.5-5.0); Albumin/Globulin Ratio 1.5 (1.1-1.8); Alkaline Phosphatase 72 U/L (38-126); Anion Gap 10.2 mEq/L (5-15); Aspartate Amino Transferase 27 U/L (14-36); Bilirubin,Total 0.6 mg/dl (0.2-1.3); Blood Urea Nitrogen 5 mg/dl (7-17); Calcium 10.2 mg/dl (8.4-10.2); Carbon Dioxide 25 mmol/L (22.0-30.0); Chloride 107 mmol/L (98-107); Estimated Glomerular Filt Rate 99 ml/min (>60); GFR (African American) 120 ML/MIN (>60); Globulin 3.1 g/dL (1.3-3.2); Glucose 86 mg/dl (74-100); Potassium 4.2 mmoL/L (3.5-5.1); Sodium 138 mmol/L (136-145); Total Protein,Serum 7.7 g/dl (6.3-8.2)
[2024-01-04 18:23] LABS: 25-OH Vitamin D, Total 25.2 ng/mL (30-100)
[2024-01-04 18:37] LABS: HCG,Quantitative < 2 mIU/ml (0-5.42)
[2024-01-04 18:42] LABS: Iron 71 ug/dL (37-170)
[2024-01-04 18:51] LABS: Total Iron Binding Capacity 441 ug/dL (265-497)
[2024-01-04 19:18] LABS: Ferritin 45.4 ng/ml (6.24-137)
[2024-01-04 19:30] LABS: Vitamin B12 256 pg/mL (239-931)
[2024-01-04 19:45] LABS: Thyroid Stimulating Hormone 1.74 uIU/mL (0.465-4.68)
== END 2024-01-04 23:59 | disposition home or self-care (01) ==
LOC: LAB 16:52
PROVIDERS: PCP Student in an Organized Health Care Education/Training Program; Visit Provider Student in an Organized Health Care Education/Training Program
DX: R53.83 Other fatigue (principal); E66.9 Obesity, unspecified; Z68.41 Body mass index [BMI] 40.0-44.9, adult
CPT/HCPCS: 36415; 80050; 80053; 82306; 82607; 82728; 82746; 83540; 83550; 84443; 84702; 85025

== ENCOUNTER 2024-02-15 13:22 | Outpatient (CLI) | payer OTHER, SELFPAY ==
[2024-02-15 14:42] LABS: HCG,Quantitative 48 mIU/ml (0-5.42)
[2024-02-15 15:24] LABS: HCG Qualitative, Serum Positive (Negative)
[2024-02-16 09:32] LABS: Progesterone 22.1 ng/mL (.)
== END 2024-02-15 23:59 | disposition home or self-care (01) ==
LOC: LAB 13:22
PROVIDERS: Nurse Practitioner Obstetrics & Gynecology; PCP Student in an Organized Health Care Education/Training Program; Visit Provider Student in an Organized Health Care Education/Training Program
DX: N92.6 Irregular menstruation, unspecified (principal); Z32.01 Encounter for pregnancy test, result positive; R39.9 Unspecified symptoms and signs involving the genitourinary system
CPT/HCPCS: 36415; 84144; 84702; 84703; 87086; 87088; 87186

== ENCOUNTER 2024-02-19 13:00 | Outpatient (CLI) | payer OTHER, SELFPAY ==
[2024-02-19] MEDS: DAPTOmycin 750 MG in 0.9 % SODIUM CHLORIDE 50 ML 100 MG IV (13:15)
[2024-02-19] MEDS: SODIUM CHLORIDE 0.9% 50ML BAG 50 ML IV (13:15)
[2024-02-19 13:18] VITALS: BP 125/98; PULSE 75; RESP 18; TEMP 36.6; O2SAT 100
[2024-02-19 14:05] VITALS: BP 124/84; PULSE 71; RESP 18; O2SAT 100
== END 2024-02-19 14:05 | disposition home or self-care (01) ==
LOC: INF 13:01
PROVIDERS: PCP Student in an Organized Health Care Education/Training Program; Visit Provider Student in an Organized Health Care Education/Training Program
DX: O23.41 Unspecified infection of urinary tract in pregnancy, first trimester (principal)
CPT/HCPCS: 96365; J0878

== ENCOUNTER 2024-02-20 12:48 | Outpatient (CLI) | payer OTHER, SELFPAY ==
[2024-02-20 13:05] VITALS: BP 128/89; PULSE 88; RESP 18; TEMP 36.6; O2SAT 100
[2024-02-20] MEDS: SODIUM CHLORIDE 0.9% 10ML FLUSH SYRINGE 10 ML IV (13:05)
[2024-02-20] MEDS: DAPTOmycin 750 MG in 0.9 % SODIUM CHLORIDE 50 ML 100 MG IV (13:05)
[2024-02-20] MEDS: SODIUM CHLORIDE 0.9% 50ML BAG 50 ML IV (13:05)
[2024-02-20 14:05] VITALS: BP 127/82; PULSE 86; RESP 18; O2SAT 100
== END 2024-02-20 14:05 | disposition home or self-care (01) ==
LOC: INF 12:49
PROVIDERS: PCP Student in an Organized Health Care Education/Training Program; Visit Provider Student in an Organized Health Care Education/Training Program
DX: O23.40 Unspecified infection of urinary tract in pregnancy, unspecified trimester (principal); O99.830 Other infection carrier state complicating pregnancy
CPT/HCPCS: 96365; J0878

== ENCOUNTER 2024-02-21 12:45 | Outpatient (CLI) | payer OTHER, SELFPAY ==
[2024-02-21 13:09] VITALS: BP 120/72; PULSE 74; RESP 18; TEMP 36.6; O2SAT 99
[2024-02-21] MEDS: DAPTOmycin 750 MG in 0.9 % SODIUM CHLORIDE 50 ML 100 MG IV (13:09)
[2024-02-21] MEDS: SODIUM CHLORIDE 0.9% 50ML BAG 50 ML IV (13:09)
[2024-02-21] MEDS: SODIUM CHLORIDE 0.9% 10ML FLUSH SYRINGE 10 ML IV (13:09)
[2024-02-21 13:50] VITALS: BP 122/77; PULSE 72; RESP 18; O2SAT 98
== END 2024-02-21 13:55 | disposition home or self-care (01) ==
LOC: INF 12:46
PROVIDERS: PCP Student in an Organized Health Care Education/Training Program; Visit Provider Student in an Organized Health Care Education/Training Program
DX: O99.830 Other infection carrier state complicating pregnancy (principal); B95.62 Methicillin resistant Staphylococcus aureus infection as the cause of diseases classified elsewhere; O23.40 Unspecified infection of urinary tract in pregnancy, unspecified trimester
CPT/HCPCS: 96365; J0878

== ENCOUNTER 2024-02-22 12:08 | Outpatient (CLI) | payer OTHER, SELFPAY ==
[2024-02-22 12:39] LABS: Creatine Kinase 52 U/L (30-135)
[2024-02-22 12:45] VITALS: BP 127/88; PULSE 68; RESP 18; TEMP 36.6; O2SAT 100
[2024-02-22] MEDS: DAPTOmycin 750 MG in 0.9 % SODIUM CHLORIDE 50 ML 100 MG IV (12:45)
[2024-02-22] MEDS: SODIUM CHLORIDE 0.9% 50ML BAG 50 ML IV (12:45)
[2024-02-22 13:35] VITALS: BP 127/90; PULSE 76; RESP 18; O2SAT 100
== END 2024-02-22 13:35 | disposition home or self-care (01) ==
LOC: INF 12:09
PROVIDERS: PCP Student in an Organized Health Care Education/Training Program; Visit Provider Student in an Organized Health Care Education/Training Program
DX: O99.830 Other infection carrier state complicating pregnancy (principal); B95.62 Methicillin resistant Staphylococcus aureus infection as the cause of diseases classified elsewhere; O23.41 Unspecified infection of urinary tract in pregnancy, first trimester
CPT/HCPCS: 82550; 96365; J0878

== ENCOUNTER 2024-02-23 12:14 | Outpatient (CLI) | payer OTHER, SELFPAY ==
[2024-02-23 12:14] VITALS: BP 126/78; PULSE 78; RESP 16; TEMP 36.8; O2SAT 98
[2024-02-23] MEDS: DAPTOmycin 750 MG in 0.9 % SODIUM CHLORIDE 50 ML 100 MG IV (13:13)
== END 2024-02-23 13:55 | disposition home or self-care (01) ==
LOC: INF 12:15
PROVIDERS: PCP Student in an Organized Health Care Education/Training Program; Visit Provider Obstetrics & Gynecology
DX: O99.830 Other infection carrier state complicating pregnancy (principal); B95.62 Methicillin resistant Staphylococcus aureus infection as the cause of diseases classified elsewhere; O23.41 Unspecified infection of urinary tract in pregnancy, first trimester
CPT/HCPCS: 96365; G0463; J0878

== ENCOUNTER 2024-02-24 12:29 | Outpatient (CLI) | payer OTHER, SELFPAY ==
[2024-02-24 12:29] VITALS: BP 132/61; PULSE 72; RESP 16; TEMP 36.8; O2SAT 100
[2024-02-24] MEDS: DAPTOmycin 750 MG in 0.9 % SODIUM CHLORIDE 50 ML 100 MG IV (12:54)
== END 2024-02-24 13:30 | disposition home or self-care (01) ==
LOC: INF 12:30
PROVIDERS: PCP Student in an Organized Health Care Education/Training Program; Visit Provider Obstetrics & Gynecology
DX: O99.830 Other infection carrier state complicating pregnancy (principal); B95.62 Methicillin resistant Staphylococcus aureus infection as the cause of diseases classified elsewhere; O23.41 Unspecified infection of urinary tract in pregnancy, first trimester
CPT/HCPCS: 96365; G0463; J0878

== ENCOUNTER 2024-02-25 12:20 | Outpatient (CLI) | payer OTHER, SELFPAY ==
[2024-02-25 12:28] VITALS: BP 146/77; PULSE 87; RESP 18; TEMP 36.3; O2SAT 100; BMI 40.6
[2024-02-25] MEDS: DAPTOmycin 750 MG in 0.9 % SODIUM CHLORIDE 50 ML 100 MG IV (12:43)
[2024-02-25] MEDS: SODIUM CHLORIDE 0.9% 50ML BAG 50 ML IV (12:44)
[2024-02-25] MEDS: SODIUM CHLORIDE 0.9% 10ML FLUSH SYRINGE 10 ML IV (12:44)
[2024-02-25 13:54] VITALS: BP 128/84; PULSE 80; RESP 18; TEMP 36.7; O2SAT 100
== END 2024-02-25 13:55 | disposition home or self-care (01) ==
LOC: INF 12:21
PROVIDERS: PCP Student in an Organized Health Care Education/Training Program; Visit Provider Obstetrics & Gynecology
DX: O99.830 Other infection carrier state complicating pregnancy (principal); B95.62 Methicillin resistant Staphylococcus aureus infection as the cause of diseases classified elsewhere; O23.41 Unspecified infection of urinary tract in pregnancy, first trimester
CPT/HCPCS: 96365; J0878

== ENCOUNTER 2024-03-01 10:52 | Outpatient (CLI) | payer BC, SELFPAY ==
[2024-03-01 12:58] LABS: HCG,Quantitative 12722 mIU/ml (0-5.42)
== END 2024-03-01 23:59 | disposition home or self-care (01) ==
LOC: LAB 10:54
PROVIDERS: PCP Student in an Organized Health Care Education/Training Program; Visit Provider Nurse Practitioner Obstetrics & Gynecology
DX: Z34.90 Encounter for supervision of normal pregnancy, unspecified, unspecified trimester (principal)
CPT/HCPCS: 36415; 84144; 84702

== ENCOUNTER 2024-03-04 15:15 | Outpatient (CLI) | payer BC, SELFPAY ==
[2024-03-04 15:44] LABS: Basophils # 0.1 K/mm3 (0-0.2); Basophils % 0.5 % (0.1-2.0); Eosinophils # 0.2 K/mm3 (0.0-0.4); Eosinophils % 1.3 % (0.1-12.0); Hematocrit 39.7 % (37.0-47.0); Hemoglobin 13.5 g/dL (12.2-16.2); Lymphocytes # 2.5 K/mm3 (0.7-4.5); Lymphocytes % 19.8 % (10-50); Mean Corpuscular Volume 85.3 fl (81-99); Mean Platelet Volume 7.7 fl (7.4-10.4); Monocytes # 0.8 K/mm3 (0.1-1.0); Monocytes % 6.6 % (1.7-9.3); Neutrophils % 71.7 % (37.0-80.0); Platelet Count 347 K/mm3 (142-424); Red Blood Count 4.65 M/mm3 (4.20-5.40); White Blood Count 12.6 K/mm3 (4.8-10.8)
[2024-03-04 17:09] LABS: Amphetamine/Metha Screen,Urine Negative ng/ml (<1000); Benzodiazepines Screen,Urine Negative ng/ml (<200)
[2024-03-04 17:10] LABS: Barbiturates Screen,Urine Negative ng/ml (<200)
[2024-03-04 17:11] LABS: Cannabinoid Screen,Urine Positive ng/ml (<50); Cocaine Screen,Urine Negative ng/ml (<300)
[2024-03-04 17:12] LABS: Methadone Screen,Urine Negative ng/ml (<300); Opiate Screen,Urine Negative ng/ml (<300)
[2024-03-04 17:13] LABS: Phencyclidine Screen,Urine Negative ng/ml (<25)
[2024-03-04 17:59] LABS: HIV (1&2) Antibody Rapid NONREACTIVE (NONREACTIVE)
[2024-03-06 05:14] LABS: HCV Ab Non Reactive (Non Reactive); Hepatitis B Surface Antigen Negative (Negative)
[2024-03-06 13:12] LABS: Rapid Plasma Reagin Ab Titer Non Reactive titer (NonRea<1:1)
[2024-03-07 04:20] LABS: Neisseria gonorrhoeae, NAA Negative (Negative)
== END 2024-03-04 23:59 | disposition home or self-care (01) ==
LOC: LAB 15:15
PROVIDERS: PCP Student in an Organized Health Care Education/Training Program; Visit Provider Nurse Practitioner Obstetrics & Gynecology
DX: Z34.81 Encounter for supervision of other normal pregnancy, first trimester (principal); Z3A.01 Less than 8 weeks gestation of pregnancy
CPT/HCPCS: 36415; 80307; 85025; 86593; 86762; 86803; 86850; 87086; 87340; 87389; 87491; 87591

== ENCOUNTER 2024-03-07 14:40 | Outpatient (CLI) | payer BC, SELFPAY ==
--- NOTE | 2024-03-07 14:40 | US_ITS ---
PROCEDURE: US OB <= 14 WEEKS FETUS CLINICAL INDICATION: Dates/Confirmation COMPARISON: No exams were available for comparison FINDINGS: Transvaginal sonographic images of the pelvis were obtained. From her last menstrual period she is 7weeks 1day. There is a twin within the uterine cavity. Fetus A is an intrauterine gestational sac is present with a pole with a crown-rump length of 0.37cm This correlates to a gestational age of 6weeks 1day. SHELBY 10/23/2024 heart tones are present with an FHR of 123bpm. Yolk sac is noted. The yolk sac measures 4.2mm. Fetus B is intrauterine gestational sac with a pole a crown-rump length of 0.41 cm. This correlates to a gestational age of 6 weeks 1 day. SHELBY 10/23/2024 heart tones are present with an FHR of 117 BPM Yolk sac is noted. The yolk sac measures 4.3 mm. The right ovary is seen and appears normal. There are 2 follicles in the right ovary measuring 2.3 cm and 2.6 cm. The left ovary is seen and appears normal. There is no fluid in the cul-de-sac. IMPRESSION: 1. Viable twin with 2 separate sacs. heart tones are present in both fetuses. 2. Both fetuses measure 6 weeks 1 day and her due date should be revised to reflect this. SHELBY will be 10/23/2024. 3. There are 2 follicles on the right ovary measuring 2.3 cm and 2.6 cm. 4. No fluid in the cul-de-sac. Dictated by: Roger Rivera MD 03/08/2024 06:45 Roger Rivera MD in OV 03/08/2024 06:45
== END 2024-03-07 23:59 | disposition home or self-care (01) ==
LOC: RAD 14:40
PROVIDERS: PCP Student in an Organized Health Care Education/Training Program; Visit Provider Nurse Practitioner Obstetrics & Gynecology
DX: O36.80X0 Pregnancy with inconclusive fetal viability, not applicable or unspecified (principal); Z3A.01 Less than 8 weeks gestation of pregnancy
CPT/HCPCS: 76801

== ENCOUNTER 2024-03-09 13:37 | Emergency (ER) | payer BC, SELFPAY ==
[2024-03-09 13:39] VITALS: BP 137/89; PULSE 101; RESP 18; TEMP 36.9; O2SAT 99; BMI 40.6
--- NOTE | 2024-03-09 13:45 | PC.NURSE ---
UA sent to lab @[id number]
[2024-03-09 13:53] LABS: Microscopic, Urine URINE MICROSCOPIC (MICROSCOPIC)
[2024-03-09 14:04] LABS: Appearance,Urine CLEAR (Clear); Bilirubin,Urine Negative (Negative); Blood, Urine 3+ (Negative); Color,Urine YELLOW (Yellow); Glucose,Urine (UA) Negative (Negative); Ketones,Urine TRACE (Negative); Leukocyte Esterase,Urine TRACE (Negative); Nitrate,Urine Negative (Negative); PH,Urine 6.5 (5.0-8.5); Protein,Urine 1+ (Negative); Specific Gravity, Urine 1.025 (1.005-1.030); Urobilinogen,Urine 0.2 EU/dl (0.2)
[2024-03-09 14:10] LABS: RBC,Urine 50-100 #/hpf (0-3)
[2024-03-09 14:11] LABS: Bacteria,Urine 2+ /lpf
[2024-03-09 14:14] LABS: Basophils # 0.1 K/mm3 (0-0.2); Basophils % 0.8 % (0.1-2.0); Eosinophils # 0.3 K/mm3 (0.0-0.4); Eosinophils % 2.1 % (0.1-12.0); Hematocrit 41.2 % (37.0-47.0); Hemoglobin 13.9 g/dL (12.2-16.2); Lymphocytes # 2.8 K/mm3 (0.7-4.5); Lymphocytes % 23.1 % (10-50); Mean Corpuscular HGB Conc 33.7 g/dL (31.8-35.4); Mean Corpuscular Hemoglobin 29.3 pg (27.0-31.2); Mean Corpuscular Volume 86.8 fl (81-99); Mean Platelet Volume 7.8 fl (7.4-10.4); Monocytes # 0.8 K/mm3 (0.1-1.0); Monocytes % 6.5 % (1.7-9.3); Neutrophils # 8.3 K/mm3 (1.8-7.8); Neutrophils % 67.6 % (37.0-80.0); Platelet Count 378 K/mm3 (142-424); Red Blood Count 4.74 M/mm3 (4.20-5.40); Red Cell Distribution Width 13.7 % (11.5-17.5); White Blood Count 12.3 K/mm3 (4.8-10.8)
[2024-03-09 14:19] LABS: Albumin Level 4.6 g/dl (3.5-5.0); Chloride 106 mmol/L (98-107); Potassium 4.3 mmoL/L (3.5-5.1); Sodium 136 mmol/L (136-145)
[2024-03-09 14:22] LABS: Alanine Aminotransferase 32 U/L (12-78); Albumin/Globulin Ratio 1.4 (1.1-1.8); Alkaline Phosphatase 50 U/L (38-126); Anion Gap 14.3 mEq/L (5-15); Aspartate Amino Transferase 32 U/L (14-36); Bilirubin,Total 0.6 mg/dl (0.2-1.3); Blood Urea Nitrogen 7 mg/dl (7-17); Calcium 9.7 mg/dl (8.4-10.2); Carbon Dioxide 20 mmol/L (22.0-30.0); Creatinine Clearance Estimated 189 mL/min (50-200); Estimated Glomerular Filt Rate 99 ml/min (>60); GFR (African American) 120 ML/MIN (>60); Globulin 3.3 g/dL (1.3-3.2); Glucose 96 mg/dl (74-100); Total Protein,Serum 7.9 g/dl (6.3-8.2)
--- NOTE | 2024-03-09 14:23 | ED_ITS ---
Discharge Plan Disposition Patient Disposition: Home, Self-Care Condition: Good Prescriptions Prescriptions: New cephalexin 500 mg capsule 500 mg PO BID 7 Days Qty: 14 0RF No Action Classic 28 mg iron- 800 mcg tablet PO promethazine 12.5 mg tablet 12.5 mg PO TID Qty: 90 0RF Referrals Follow up/Referrals: Katy Adams PA [Primary Care Provider] - See instructions Activity Restrictions/Add. Instructions Additional Instructions/Restrictions: You were evaluated in the emergency department today. I encourage pelvic rest. 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 I recommend contacting them in the morning to schedule an appointment to be seen for quick reassessment. Make sure you are staying hydrated. Return to the emergency department for new or worsening symptoms Clinical Impressions Clinical Impression: Vaginal bleeding during Instructions Patient Instructions: DI for Vaginal Bleeding During Print Language Print Language: Pakistani Discharge ED Provider: Teri Nazario General Adult HPI General Chief complaint: Urogenital-Female Stated complaint: 7 wks antepartum bleeding pinching Time Seen by Provider: 03/09/24 13:45 Mode of Arrival: Ambulatory Source of Information: Patient Limitations: No Limitations Description of Symptoms (Recalled from ER Triage Doc. by RN): twin approx 7 weeks, spotting History of Present Illness HPI narrative: This patient is a 28-year-old female at estimated 7 weeks gestation with twin presenting to the emergency department for evaluation with concern for light pink vaginal bleeding x1 day that initially was only light spotting but now has slightly increased. She states she is worried she could be having another miscarriage. She notes she had does have some twinges of pelvic pain, though mild. She has already had confirmatory outpatient ultrasound done with gynecology and she also has had type and screen which demonstrated positive blood type. She is having a twin currently. No fevers, chills, lightheadedness, dysuria, urinary frequency, or other concerns Related Data Home Medications ?Medication ?Instructions ?Recorded ?Confirmed vits no.126-ferrous fum tab PO 03/04/24 03/04/24 28 mg iron-folic acid 800 mcg tablet (Classic ) Previous Rx's ?Medication ?Instructions ?Recorded promethazine 12.5 mg tablet 12.5 mg PO TID #90 tabs 03/05/24 cephalexin 500 mg capsule 500 mg PO BID 7 days #14 caps 03/09/24 Allergies Allergy/AdvReac Type Severity Reaction Status Date / Time acetaminophen [From Tylenol] Allergy Other Verified 03/04/24 14:18 [facility] Disclaimer: The information contained in this section may have been updated after the patient was seen, as this information can be updated by other users. Medical History Migraine PCOS (polycystic ovarian syndrome) Surgical History (Reviewed 03/09/24 @ 14: by Teri Nazario DO) History of hysteroscopy History of surgery of uterus Family History (Reviewed 03/09/24 @ 14: by Teri Nazario DO) Other Cancer Diabetes Hypertension Leukemia Social History (Reviewed 03/09/24 @ 14: by Teri Nazario DO) Smoking Status: Never smoker alcohol intake: never substance use type: denies use current occupational status: employed Travel in the last 8 weeks: None Other Medical History Have you received the Pneumonia Vaccine: No ROS Obtained: Yes All systems reviewed & no additional complaints except as documented Physical Exam General General appearance: alert and in no apparent distress Head Head exam: atraumatic and normocephalic Eye Eye exam: Present normal appearance, PERRL and EOMI ENT ENT exam: Present normal exam, normal oropharynx, mucous membranes moist and normal external ear exam Neck Neck exam: Present normal inspection, full ROM and trachea midline; Absent tenderness Chest Chest inspection: Present normal inspection and symmetric chest wall rise; Absent tenderness Respiratory Respiratory exam: Present normal lung sounds bilaterally; Absent respiratory distress, wheezes, stridor or accessory muscle use Cardiovascular Cardiovascular exam: Present regular rate and normal rhythm Abdominal Exam Abdominal exam: Present soft; Absent distention, tenderness or guarding Extremities Exam Extremities exam: Present normal inspection, full ROM and normal capillary refill; Absent tenderness or edema Back Exam Back exam: Present normal inspection and full ROM; Absent tenderness Neurological Exam Neurological exam: Present alert, oriented X3, CN II-XII intact and normal gait; Absent motor sensory deficit Psychiatric Psychiatric exam: Present normal affect and normal mood Skin Skin exam: Present warm and dry Medical Decision Making Medical Records Medical records reviewed: Yes I reviewed the patient's medical records. Screening: Per USPSTF and CDC recommendations, given the prevalence of disease in our region, it is our hospital?s policy to screen for HIV and viral Hepatitis for all patients aged 18 and over and those with ongoing risk factors. Mariano Inquiry Pt receiving controlled substance: No Vital Signs: 03/09/24 13:39 03/09/24 15:26 Temperature 98.4 F 98.2 F Temperature Source Oral Pulse Rate 90 Pulse Rate [Right] 101 H Respiratory Rate 18 18 Blood Pressure 137/89 Blood Pressure [Right Arm] 137/89 Blood Pressure Mean [Right Arm] 105 02 Sat by Pulse Oximetry 99 Oxygen Delivery Method Room Air Lab Data Lab results reviewed: Yes I reviewed the patient's lab results. Lab Results 03/09/24 13:41: Urine Color Yellow, Urine Appearance Clear, Urine pH 6.5, Ur Specific [place] 1.025, Urine Protein 1+ A, Urine Glucose (UA) Negative, Urine Ketones Trace, Urine Blood 3+ A, Urine Nitrate Negative, Urine Bilirubin Negative, Urine Urobilinogen 0.2, Ur Leukocyte Esterase Trace, Urine RBC 50-100, Urine WBC 3-5, Ur Squamous Epith Cells 10-20, Urine Bacteria 2+ 03/09/24 13:46: WBC 12.3 H, RBC 4.74, Hgb 13.9, Hct 41.2, MCV 86.8, MCH 29.3, MCHC 33.7, RDW 13.7, Plt Count 378, MPV 7.8, Neut % (Auto) 67.6, Lymph % (Auto) 23.1, [place] % (Auto) 6.5, Eos % (Auto) 2.1, Baso % (Auto) 0.8, Neut # (Auto) 8.3 H, Lymph # (Auto) 2.8, [place] # (Auto) 0.8, Eos # (Auto) 0.3, Baso # (Auto) 0.1, Sodium 136, Potassium 4.3, Chloride 106, Carbon Dioxide 20 L, Anion Gap 14.3, BUN 7, Creatinine 0.70, Estimated Creat Clear 189, Estimated GFR 99, Est GFR ( Amer) 120, Glucose 96, Calcium 9.7, Total Bilirubin 0.6, AST 32, ALT 32, Alkaline Phosphatase 50, Total Protein 7.9, Albumin 4.6, Globulin 3.3 H, Albumin/Globulin Ratio 1.4, HCG, Quant [id number] H 03/09/24 13:46 10/13/24 13:46 Orders (Tests/Meds): ED MEDICATIONS Discontinued Medications Generic Name Dose Route Start Last Admin Trade Name Jaime PRN Reason Stop Dose Admin Cephalexin HCl 500 mg 03/09/24 14:22 03/09/24 14:37 Cephalexin 500mg Capsule PO 03/09/24 14:23 500 mg ONCE ONE Administration ORDERS Category Date Time Status POCUS Point of Care (ER Only) Stat Exams 03/09/24 13:48 Completed Complete Blood Count Auto Diff Stat Lab 03/09/24 13:46 Completed Comprehensive Metabolic Panel Stat Lab 03/09/24 13:46 Completed HCG,Quantitative Stat Lab 03/09/24 13:46 Completed HIV (1&2) Antibody Rapid Stat Lab 03/09/24 13:53 Ordered Hep C Ab with Reflex to RNA Stat Lab 03/09/24 13:53 Ordered UA [Urinalysis and Microscopic] Stat Lab 03/09/24 13:41 Completed Urine Culture Stat Micro 03/09/24 13:41 Received Medical Decision Narrative: In summary, this patient is a 28-year-old female presenting to the Emergency Department for evaluation of vaginal bleeding in the setting of early . Differential diagnoses considered include but are not limited to threatened , missed , subchorionic hemorrhage. Ruling out the most morbid conditions drove assessment. . I reviewed patient's past medical records and noted OB evaluation 5 days ago for this twin . I noted prior positive blood type as well as prior ultrasound confirming IUP and ruling out ectopic . On exam, the patient is lying in bed in no acute distress. She has benign abdominal exam. Patient is already had confirmatory ultrasound, so I did not call an ultrasound for transvaginal to rule exclude ectopic . No RhoGAM is indicated on review of blood type and medical records. I did perform a bedside transabdominal ultrasound which visualized 2 gestational sacs consistent with her known twin . workup included CBC, CMP, quantitative hCG, urinalysis. Urinalysis is contaminated with squamous cells and also has significant amount of blood secondary to vaginal bleeding, but there is some bacteria. Will go ahead and treat empirically in the setting of given that this could increase her risk for miscarriage. She was given oral Keflex. hCG continues to climb, which is reassuring. Labs are otherwise reassuring as well. Ultimately, I feel the patient is appropriate for discharge home with close follow-up with gynecology, instructions for pelvic rest, instructions for expectant management. I did advised her that we cannot exclude threatened abortiongiven bleeding, however bleeding can be normal in early . She expressed understanding agreement and is in agreement to follow-up closely with gynecology. She was given strict return precautions and was discharged after all questions were answered. Procedures Limited Ultrasound Findings:: Limited OB ultrasound Indication: Vaginal bleeding in the setting of Identified structures: Uterus Findings: Uterus: Definitive twin IUP FHR: Unable to get heart rate given lower quality of transabdominal ultrasound when compared to transvaginal and difficulty visualizing cardiac activity Cul de sac: Free fluid absent Impression: -IUP: Present -Free fluid: Absent Images worsen to permanent archive The study was technically adequate [facility] Transabdominal: [id number] This study was performed by me, and I personally interpreted all images/videos. Based on my clinical judgement, these images were adequate and did not necessitate further imaging. Critical Care Critical Care Time Critical Care Time: No
[2024-03-09] MEDS: cephALEXin 500MG CAPSULE 500 MG PO (14:37)
[2024-03-09 15:06] LABS: HCG,Quantitative 46868 mIU/ml (0-5.42)
[2024-03-09 15:26] VITALS: BP 137/89; PULSE 90; RESP 18; TEMP 36.8; O2SAT 99
== END 2024-03-09 15:30 | disposition home or self-care (01) ==
PROVIDERS: Emergency Provider Emergency Medicine; PCP Student in an Organized Health Care Education/Training Program
DX: O46.90 Antepartum hemorrhage, unspecified, unspecified trimester (principal); N93.9 Abnormal uterine and vaginal bleeding, unspecified
CPT/HCPCS: 80053; 81001; 84702; 85025; 87086; 99283

== ENCOUNTER 2024-03-26 10:51 | Outpatient (CLI) | payer BC, SELFPAY ==
--- NOTE | 2024-03-26 10:54 | US_ITS ---
PROCEDURE: US OB <= 14 WEEKS FETUS CLINICAL INDICATION: Check Baby B for Viability, TWINS COMPARISON: US US OB <= 14 WEEKS FETUS from 03/07/2024 FINDINGS: Transvaginal sonographic images of the pelvis were obtained. From her last menstrual period she is 9weeks 6days. Twin gestation Two intrauterine gestational sacs are seen. TWIN A: An intrauterine gestational sac is present with a pole with a crown-rump length of 2.46cm This correlates to a gestational age of 9weeks 2days. SHELBY will remain 10/23/2024 heart tones are present with an FHR of 185bpm. Yolk sac is noted. The yolk sac measures 5.6mm. TWIN B: An intrauterine gestational sac is present with a pole with a crown-rump length of 1.1 cm This correlates to a gestational age of 7 weeks 2days. heart tones are absent. Yolk sac is noted. The yolk sac measures 4.2mm. The right ovary is seen and appears normal. There is a follicle measuring 2.4 cm. The left ovary is seen and appears normal. The ovary appears polycystic with multiple small peripheral follicles. There is no fluid in the cul-de-sac. IMPRESSION: 1. There is a twin within the uterine cavity with heart rate activity in twin A. 2. There is no heart rate activity with demise in twin B. 3. The left ovary appears polycystic. The right ovary has a follicle measuring 2.4 cm. 4. No fluid in the cul-de-sac. Dictated by: Roger Rivera MD 03/27/2024 07:24 Roger Rivera MD in OV 03/27/2024 07:24
== END 2024-03-26 23:59 | disposition home or self-care (01) ==
LOC: RAD 10:51
PROVIDERS: PCP Student in an Organized Health Care Education/Training Program; Visit Provider Obstetrics & Gynecology
DX: O36.80X0 Pregnancy with inconclusive fetal viability, not applicable or unspecified (principal); Z87.59 Personal history of other complications of pregnancy, childbirth and the puerperium; O30.041 Twin pregnancy, dichorionic/diamniotic, first trimester
CPT/HCPCS: 76801

== ENCOUNTER 2024-04-21 14:25 | Outpatient (CLI) | payer BC, SELFPAY | END 2024-04-21 23:59 | disposition home or self-care (01) | LOC: LAB.DROPOF 04-22 08:37 | PROVIDERS: PCP Student in an Organized Health Care Education/Training Program; Visit Provider Student in an Organized Health Care Education/Training Program | DX: R39.9 Unspecified symptoms and signs involving the genitourinary system (principal) | CPT/HCPCS: 87086 ==

== ENCOUNTER 2024-06-19 13:01 | Outpatient (CLI) | payer BC, SELFPAY ==
--- NOTE | 2024-06-19 13:06 | US_ITS ---
PROCEDURE: US OB /MATERNAL DETAIL CLINICAL INDICATION: 20 wk+ Anatomy Scan-US OB Complete COMPARISON: US US OB <= 14 WEEKS FETUS from 03/07/2024 US US OB <= 14 WEEKS FETUS from 03/26/2024 FINDINGS: Transabdominal sonographic images of the pelvis were obtained. From her established due date she is 21 weeks 0 days. Single viable intrauterine gestation. Cephalic position. Placenta: Anteriorplacenta grade 1. There is an average amount of fluid. The cervix appears satisfactory. Closed and measuring 5.27 cm in length. Complete survey performed and was unremarkable on the submitted images as in PACS. No discrete anomalies identified on survey imaging by technologist. Active fetus. Three-vessel cord with satisfactory umbilical cord insertion. 4- chamber heart noted. Situs, aortic arch, LVOT, RVOT, three-vessel view appear normal. Survey of brain & ventricles Unremarkable. Cerebellum, thalamus, choroid plexus, cisterna magna appear normal. Face and neck survey unremarkable. Profile, nasion, lips and nose appeared normal. Diaphragm and chest views unremarkable. Abdomen: Both kidneys noted and unremarkable. Stomach and bladder noted and satisfactory. Spine: Survey of the spine satisfactory with no anomalies identified nor imaged. Cervical, thoracic, lower spine appear normal. Both arms and legs noted. Amniotic Fluid: Adequate. MVP 5.23 cm Measurements: Average ultrasound age 21weeks 4days. Estimated due date by ultrasound age 0610/26/2024. Estimated weight 418g BPD = 22weeks 0 days HC = 21weeks 4days AC = 21weeks 6days FL = 20weeks 6days Growth Percentile= 64 Heart Rate = 139bpm Cerebellum = 20weeks 5days Humerus = 22weeks 1day HC/AC is 1.14 FL/BPD is 0.65 FL/AC is 0.2 IMPRESSION: 1. Viable fetus viable fetus within the uterine cavity. 2. The fluid is within normal limits with an MVP 5.23 cm. 3. Anatomical scan appears normal. 4. biometry is consistent with the dates. Dictated by: Roger Rivera MD 06/20/2024 10:24 Roger Rivear MD in [facility] 06/20/2024 10:24
== END 2024-06-19 23:59 | disposition home or self-care (01) ==
LOC: RAD 13:02
PROVIDERS: PCP Nurse Practitioner Family; Visit Provider Obstetrics & Gynecology
DX: Z36.3 Encounter for antenatal screening for malformations (principal); O99.212 Obesity complicating pregnancy, second trimester; Z3A.21 21 weeks gestation of pregnancy; Z87.59 Personal history of other complications of pregnancy, childbirth and the puerperium
CPT/HCPCS: 76811

== ENCOUNTER 2024-06-27 09:58 | Inpatient (IN) | payer BC, SELFPAY ==
[2024-06-27 06:11] VITALS: BMI 44.9
[2024-06-27 06:23] VITALS: BP 157/77; PULSE 76; RESP 18; TEMP 36.3; O2SAT 97
[2024-06-27 06:39] LABS: Microscopic, Urine URINE MICROSCOPIC (MICROSCOPIC)
[2024-06-27 06:40] VITALS: BP 157/77; PULSE 76; RESP 18; TEMP 36.3; O2SAT 97; BMI 44.9
[2024-06-27 06:53] LABS: Appearance,Urine SL CLOUDY (Clear); Bilirubin,Urine Negative (Negative); Blood, Urine 1+ (Negative); Color,Urine YELLOW (Yellow); Glucose,Urine (UA) Negative (Negative); Ketones,Urine TRACE (Negative); Leukocyte Esterase,Urine 2+ (Negative); Nitrate,Urine Negative (Negative); Protein,Urine TRACE (Negative); Specific Gravity, Urine >= 1.030 (1.005-1.030); Urobilinogen,Urine 0.2 EU/dl (0.2)
[2024-06-27 07:00] LABS: Fetal Membrane Rupture (Rapid) Negative (Negative)
[2024-06-27 07:16] LABS: Bacteria,Urine 1+ /lpf
[2024-06-27] MEDS: LACTATED RINGERS 1000ML 1,000 ML 999 ML IV ×2 (07:16→08:37)
[2024-06-27] MEDS: OXYCODONE 5MG IMMEDIATE RELEASE TABLET 5 MG PO ×3 (07:16→23:59)
[2024-06-27 07:17] LABS: Yeast,Urine Occasional /lpf
[2024-06-27] MEDS: CEFAZOLIN SODIUM 3 GM in 0.9 % SODIUM CHLORIDE 100 ML IV (07:17)
[2024-06-27 07:38] LABS: Amphetamine/Metha Screen,Urine Negative ng/ml (<1000); Barbiturates Screen,Urine Negative ng/ml (<200); Benzodiazepines Screen,Urine Negative ng/ml (<200); Cannabinoid Screen,Urine Negative ng/ml (<50); Cocaine Screen,Urine Negative ng/ml (<300); Methadone Screen,Urine Negative ng/ml (<300); Opiate Screen,Urine Negative ng/ml (<300); Phencyclidine Screen,Urine Negative ng/ml (<25)
[2024-06-27] MEDS: ONDANSETRON 4MG/2ML VIAL 4 MG IV (08:36)
--- NOTE | 2024-06-27 09:19 | US_ITS ---
PROCEDURE: US OB FOLLOW UP CLINICAL INDICATION: 22 weeks, vaginal bleeding COMPARISON: US US OB <= 14 WEEKS FETUS from 03/07/2024 US US OB <= 14 WEEKS FETUS from 03/26/2024 US US OB /MATERNAL DETAIL from 06/19/2024 FINDINGS: Transabdominal sonographic images of the pelvis were obtained. The following parameters are obtained: From her established due date she is 22weeks 1day Viable fetus in the cephalic presentation with an anterior placenta grade 1. heart rate: 156bpm bpm. Amniotic fluid: Subjectively the fluid appears decreased. There is a single pocket of fluid with an MVP 2.1 cm. The fetus appears to be low within the uterine cavity and possibly into the vagina. IMPRESSION: 1. Viable fetus in the cephalic presentation with an anterior placenta grade 1. 2. The fluid appears low subjectively with a single pocket with an MVP of 2.1 cm. 3. The fetus is very low within the uterine cavity and possibly through the cervix and into the upper vagina. Dictated by: Roger Rivera MD 06/27/2024 16:49 Roger Rivera MD in [facility] 06/27/2024 16:49
[2024-06-27] MEDS: LACTATED RINGERS 1000ML 1,000 ML 75 ML IV (10:05)
--- NOTE | 2024-06-27 10:06 | PC.NURSE ---
MD Eldon speaking to [facility] center at this time.
--- NOTE | 2024-06-27 10:10 | PC.NURSE ---
from . [phone] Call back when baby has been delivered.
[2024-06-27] MEDS: OXYTOCIN/RINGERS LACTATE 30 UNITS/500 ML BAG 40 UNITS IV (10:19)
[2024-06-27] MEDS: BUTORPHANOL TARTRATE 1 MG/ML VIAL IV (10:21)
--- NOTE | 2024-06-27 10:22 | PC.NURSE ---
Time of delivery 1016.
--- NOTE | 2024-06-27 10:25 | PC.NURSE ---
Chelita Montero called back and updated on baby status. HR-56. intubated w/ breath sounds SpO2 86. [facility] in route. ETA 30min
--- NOTE | 2024-06-27 10:27 | [facility].PROCNOTE ---
[facility] Procedure Note Date: 06/27/24 Time: 10:15 Procedure Note:: Anesthesia Procedure Note Intubation Called to Rm FH=415 for intubation of 23 week fetus. Upon arrival, patient with imminent delivery. Dr. Rivera @ bedside. RTs @ bedside. Upon delivery of fetus, DL x1 by Dr. Colón. DL x 1 by this provider. Fetus intubate w/4.5 OETT. + Chest rise/fall, SILVERIO BSE per RN. Fetus HR & SpO2 stable. Faint EtCO2 by detector. Will continue to follow as needed.
--- NOTE | 2024-06-27 10:44 | P.HP_ITS ---
History of Present Illness *Admission Date: 06/27/24 *Reason for visit:: Pelvic pain, low back pain, labor *History of present illness: She is a 28-year-old 3 now para 1 who was 23 weeks and 1 day gestational age. An ultrasound performed at 6 weeks and 5 days showed that she had a viable twin . The dates are revised to reflect this since she was 1 week last then from her last menstrual period. 3 weeks later an ultrasound showed there was demise of 1 twin. She subsequently had an anatomy scan about a week ago that was normal. 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 She had a shower later that day and then felt better. Yesterday she continued to have back pain and last night it was quite severe. She thought she may have leaked a small amount of fluid and then went back to bed but the pain returned. She had no further leakage of fluid. On arrival here her AmniSure was negative. She arrived here earlier this morning and appeared to be having contractions on the monitor. We gave her 2 L of fluid as well as 3 g of IV Ancef since her urine looked concentrated. She subsequently went to the bathroom and at that time had some vaginal bleeding. She was examined and found to be 4 cm dilated. As result of that we ordered an ultrasound and ultrasound revealed a fetus in the cephalic presentation extremely low down in the pelvis. heart tones were present. Shortly after the ultrasound at 9:35 AM she spontaneously ruptured her membranes and there was a large gush of fluid. I examined her and the head was found to be in the vagina. She subsequently continued to progress and we elected to push the baby out after having pediatrics, respiratory therapy present in the room. We have also called the transport team from [facility]. She delivered spontaneously a liveborn female child at 10:16 AM on the morning of June 27, 2024. The baby was handed to Dr. Colón who performed the resuscitation. She subsequently received IV oxytocin and the placenta delivered spontaneously at 10:26 AM. It had a normal three-vessel cord. There was what appeared to be an abruption on the edge of the placenta taking approximately 15% of the placental surface. Old clot was present at the edge of the placenta. It is not clear whether she had an abruption that caused delivery, a urinary tract infection or possibly chorioamnionitis. [facility] Disclaimer: The information contained in this section may have been updated after the patient was seen, as this information can be updated by other users. Medical History Maternal obesity affecting , antepartum , twin with loss of one fetus, antepartum History of miscarriage Dichorionic diamniotic twin gestation Migraine PCOS (polycystic ovarian syndrome) Surgical History History of hysteroscopy History of surgery of uterus Family History Diabetes Leukemia Cancer Hypertension Social History Smoking Status: Never smoker alcohol intake: never substance use type: denies use current occupational status: employed Travel in the last 8 weeks: None Have you lived/traveled outside [place] in past 30 days?: No Contact w/someone who lives/traveled outside US past 30 days?: No Exposure to someone with infectious disease in past 14 days?: No Do you have a fever (greater than 100.4 F or 38 C)?: No Have you tested positive for COVID-19: No Exposed to someone with COVID-19 in past 14 days?: No Do you have a sore throat?: No Do you have a cough?: No Do you have any weakness?: No Do you have any diarrhea?: No Are you experiencing any unusual bleeding?: No Do you have any muscle aches/pain?: Yes Do you have any abdominal pain?: Yes Are you experiencing loss of taste or smell?: No Other Medical History Have you received the Flu Vaccine for this season: No Have you received the Pneumonia Vaccine: No Review of Systems Review of Systems Review of systems:: pertinent systems reviewed and negative unless documented below Meds Home Medications and Allergies Home Medications ?Medication ?Instructions ?Recorded ?Confirmed ?Type vits no.126-ferrous fum 1 tab PO DAILY 03/04/24 06/27/24 History 28 mg iron-folic acid 800 mcg tablet (Classic ) New Prescriptions to Start Prescriptions: Allergies Allergy/AdvReac Type Severity Reaction Status Date / Time acetaminophen (From Tylenol) Allergy Other Verified 06/19/24 14:00 Exam Data for Last 24 hours Vital signs and Labs for Last 24 Hours: Temp Pulse Resp BP Pulse Ox O2 Del Method 97.4 F L 76 18 157/77 H 97 Room Air 06/27/24 06:40 06/27/24 06:40 06/27/24 06:40 06/27/24 06:40 06/27/24 06:40 06/27/24 06:40 Laboratory Results - last 24 hr 06/27/24 06:20: Urine Color Yellow, Urine Appearance Sl cloudy, Urine pH 6.0, Ur Specific [place] >= 1.030, Urine Protein Trace, Urine Glucose (UA) Negative, Urine Ketones Trace, Urine Blood 1+ A, Urine Nitrate Negative, Urine Bilirubin Negative, Urine Urobilinogen 0.2, Ur Leukocyte Esterase 2+ A, Urine RBC 3-5, Urine WBC 10-20, Ur Squamous Epith Cells 10-20, Urine Bacteria 1+, Urine Yeast Occasional, Membrane Rupture Negative, Urine Opiates Screen Negative, Urine Methadone Screen Negative, Ur Barbituates Screen Negative, Ur Phencyclidine Scrn Negative, Ur Amphetamines Screen Negative, U Benzodiazepines Scrn Negative, Urine Cocaine Screen Negative, U Marijuana (THC) Screen Negative I & O for Last 24 hours: Intake & Output 06/24/24 06/25/24 06/26/24 06/27/24 11:59 11:59 11:59 11:59 Weight 246 lb Constitutional Constitutional: no acute distress and obese *Routine HEENT Exam Head: Present normocephalic Eye: Present EOMI and PERRL ENT: Present mucous membranes moist *Routine Neck Exam Neck: Present supple; Absent lymphadenopathy *Routine Respiratory Exam Respiratory: Present CTA bilaterally *Routine Cardiovascular Exam Cardiovascular: Present RRR *Routine Abdominal Exam Abdominal: Present soft and normoactive bowel sounds; Absent tenderness *Routine Rectal Exam Rectal:: deferred *Routine Genitalia Exam Genitalia:: deferred *Routine Extremities Exam Extremities: Absent cyanosis, clubbing or edema *Routine Skin Exam Skin: Present warm; Absent rash *Routine Neurological Exam Neurological: Present alert and oriented X3 Assessment and Plan *Assessment and plan (1) labor with delivery in second trimester: Status: Acute Qualifiers: Fetus number: single or unspecified fetus Qualified Code(s): O60.12X0 - labor second trimester with delivery second trimester, not applicable or unspecified Category: Medical Code(s): O60.12X0 - labor second trimester with delivery second trimester, not applicable or unspecified (2) Abruptio placenta: Status: Acute Qualifiers: Trimester: second trimester Qualified Code(s): O45.92 - Premature separation of placenta, unspecified, second trimester Category: Medical Code(s): O45.90 - Premature separation of placenta, unspecified, unspecified trimester (3) Maternal obesity affecting , antepartum: Status: Acute Qualifiers: Obesity type affecting : unspecified obesity Qualified Code(s): O99.210 - Obesity complicating , unspecified trimester Category: Medical Code(s): O99.210 - Obesity complicating , unspecified trimester (4) , twin with loss of one fetus, antepartum: Problem Comment: Loss of baby B discovered on 8w6d ultrasound Status: Acute Category: Medical (5) History of miscarriage: Problem Comment: x 2 Status: Acute Category: Medical Code(s): Z87.59 - Personal history of other complications of , childbirth and the puerperium (6) Status post hysteroscopic resection of uterine septum: Status: Acute Category: Surgical Code(s): Z98.891 - History of uterine scar from previous surgery Plan She spontaneously delivered a liveborn female child at 10:16 AM June 27, 2024. We are awaiting the transport team from . When Sarah is stable we will discharge her to follow her baby to .
--- NOTE | 2024-06-27 14:33 | CARE MANAGER ---
Spoke with and patient regarding different resources as he has recently became unemployed. Provided them with resource list and emphasized the benefits for assistance with food and Medicaid. He states they have transportation. Provided them with the financial counselor's information and they stated they would reach out to her at a later time due to the circumstances of today. They denied needing any other information at this time. BERNARD Contreras
[2024-06-27] MEDS: IBUPROFEN 400 MG TABLET 800 MG PO ×2 (15:00→20:38)
[2024-06-27 16:46] LABS: Basophils % 0.1 % (0.1-2.0); Eosinophils % 0.1 % (0.1-12.0); Hematocrit 35.8 % (37.0-47.0); Hemoglobin 11.8 g/dL (12.2-16.2); Lymphocytes % 5.9 % (10-50); Mean Corpuscular Hemoglobin 27.6 pg (27.0-31.2); Mean Corpuscular Volume 83.6 fl (81-99); Mean Platelet Volume 10.6 fl (7.4-10.4); Monocytes # 0.8 K/mm3 (0.1-1.0); Monocytes % 4.6 % (1.7-9.3); Neutrophils % 88.8 % (37.0-80.0); Platelet Count 275 K/mm3 (142-424); Red Blood Count 4.28 M/mm3 (4.20-5.40); Red Cell Distribution Width 12.8 % (11.5-17.5); White Blood Count 16.8 K/mm3 (4.8-10.8)
[2024-06-27 16:50] LABS: MANUAL DIFFERENTIAL MANUAL DIFFERENTIAL (MANUAL DIFF)
[2024-06-27 16:57] LABS: Alanine Aminotransferase 23 U/L (12-78); Albumin Level 3.7 g/dl (3.5-5.0); Albumin/Globulin Ratio 1.2 (1.1-1.8); Alkaline Phosphatase 98 U/L (38-126); Anion Gap 12.6 mEq/L (5-15); Aspartate Amino Transferase 29 U/L (14-36); Bilirubin,Total 0.2 mg/dl (0.2-1.3); Blood Urea Nitrogen 4 mg/dl (7-17); Carbon Dioxide 20 mmol/L (22.0-30.0); Chloride 106 mmol/L (98-107); Creatinine Clearance Estimated 131 mL/min (50-200); Estimated Glomerular Filt Rate 146 ml/min (>60); GFR (African American) 177 ML/MIN (>60); Glucose 105 mg/dl (74-100); Potassium 3.6 mmoL/L (3.5-5.1); Sodium 135 mmol/L (136-145); Total Protein,Serum 6.7 g/dl (6.3-8.2)
[2024-06-27 17:47] LABS: Lymphocytes % 1 % (10-50); Monocytes % 4 % (2-9); Neutrophils % 95 % (42-76); Platelet Estimate Normal; RBC Morphology Normal; Total Cells Counted 100
[2024-06-27] MEDS: PRENATAL MULTIVITAMIN W/IRON 1 EACH PO (20:41)
[2024-06-27] MEDS: hydrOXYzine pamoate 25MG CAPSULE 50 MG PO (23:59)
[2024-06-28 00:35] LABS: RPR W/RFX Titers Nonreactive (Nonreactive)
[2024-06-28 08:32] VITALS: BP 122/77; PULSE 89; RESP 15; TEMP 36.8; O2SAT 98
--- NOTE | 2024-06-28 09:54 | P.DS_ITS ---
General Admission date:: 06/27/24 Discharge date: 06/28/24 HPI HPI HPI: She is a 28-year-old 3 now para 1 who was 23 weeks and 1 day gestational age. An ultrasound performed at 6 weeks and 5 days showed that she had a viable twin . The dates are revised to reflect this since she was 1 week last then from her last menstrual period. 3 weeks later an ultrasound showed there was demise of 1 twin. She subsequently had an anatomy scan about a week ago that was normal. 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 She had a shower later that day and then felt better. Yesterday she continued to have back pain and last night it was quite severe. She thought she may have leaked a small amount of fluid and then went back to bed but the pain returned. She had no further leakage of fluid. On arrival here her AmniSure was negative. She arrived here earlier this morning and appeared to be having contractions on the monitor. We gave her 2 L of fluid as well as 3 g of IV Ancef since her urine looked concentrated. She subsequently went to the bathroom and at that time had some vaginal bleeding. She was examined and found to be 4 cm dilated. As result of that we ordered an ultrasound and ultrasound revealed a fetus in the cephalic presentation extremely low down in the pelvis. heart tones were present. Shortly after the ultrasound at 9:35 AM she spontaneously ruptured her membranes and there was a large gush of fluid. I examined her and the head was found to be in the vagina. She subsequently continued to progress and we elected to push the baby out after having pediatrics, respiratory therapy present in the room. We have also called the transport team from [facility]. She delivered spontaneously a liveborn female child at 10:16 AM on the morning of June 27, 2024. The baby was handed to Dr. Colón who performed the resuscitation. She subsequently received IV oxytocin and the placenta delivered spontaneously at 10:26 AM. It had a normal three-vessel cord. There was what appeared to be an abruption on the edge of the placenta taking approximately 15% of the placental surface. Old clot was present at the edge of the placenta. It is not clear whether she had an abruption that caused delivery, a urinary tract infection or possibly chorioamnionitis. Hospital Course Hospital Course Hospital Course: She is a 28-year-old 3 now para 1 who was 23 weeks and 1 day gestational age. An ultrasound performed at 6 weeks and 5 days showed that she had a viable twin . The dates are revised to reflect this since she was 1 week last then from her last menstrual period. 3 weeks later an ultrasound showed there was demise of 1 twin. She subsequently had an anatomy scan about a week ago that was normal. 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 She had a shower later that day and then felt better. Yesterday she continued to have back pain and last night it was quite severe. She thought she may have leaked a small amount of fluid and then went back to bed but the pain returned. She had no further leakage of fluid. On arrival here her AmniSure was negative. She arrived here earlier this morning and appeared to be having contractions on the monitor. We gave her 2 L of fluid as well as 3 g of IV Ancef since her urine looked concentrated. She subsequently went to the bathroom and at that time had some vaginal bleeding. She was examined and found to be 4 cm dilated. As result of that we ordered an ultrasound and ultrasound revealed a fetus in the cephalic presentation extremely low down in the pelvis. heart tones were present. There was very little amniotic fluid. Shortly after the ultrasound at 9:35 AM she spontaneously ruptured her membranes and there was a large gush of fluid. I examined her and the head was found to be in the vagina. She subsequently continued to progress and we elected to push the baby out after having pediatrics, respiratory therapy present in the room. We have also called the transport team from [facility]. She delivered spontaneously a liveborn female child at 10:16 AM on the morning of June 27, 2024. The baby was handed to Dr. Colón who performed the resuscitation. The baby was assigned Apgars of 3 at 1 minute, 3 at 5 minutes and 2 at 10 minutes. Unfortunately the baby after extensive resuscitation efforts. Baby weighed 1 pound 0 ounces. She subsequently received IV oxytocin and the placenta delivered spontaneously at 10:26 AM. It had a normal three-vessel cord. There was what appeared to be an abruption on the edge of the placenta taking approximately 15% of the placental surface. Old clot was present at the edge of the placenta. It is not clear whether she had an abruption that caused delivery, a urinary tract infection or possibly chorioamnionitis. She will be discharged home this morning to follow-up with Dr. Cm in approximately 2 weeks time. She will continue with her vitamins. We will give her a prescription for Macrobid 100 mg twice daily to take for the next 7 days since she had what appeared to be a urinary tract infection on arrival. Her condition on discharge is stable and improved. Exam Data for Last 24 hours Vital signs and Labs for Last 24 Hours: Temp Pulse Resp BP Pulse Ox O2 Del Method 98.2 F 89 15 122/77 98 Room Air 06/28/24 08:32 06/28/24 08:32 06/28/24 08:32 06/28/24 08:32 06/28/24 08:32 06/28/24 08:32 Laboratory Results - last 24 hr 06/27/24 09:57: WBC 16.8 H, RBC 4.28, Hgb 11.8 L, Hct 35.8 L, MCV 83.6, MCH 27.6, MCHC 33.0, RDW 12.8, Plt Count 275, MPV 10.6 H, Neut % (Auto) 88.8 H, Lymph % (Auto) 5.9 L, [place] % (Auto) 4.6, Eos % (Auto) 0.1, Baso % (Auto) 0.1, Neut # (Auto) 15.0 H, Lymph # (Auto) 1.0, [place] # (Auto) 0.8, Eos # (Auto) 0.0, Baso # (Auto) 0.0, Total Counted 100, Neutrophils % (Manual) 95 H, Lymphocytes % (Manual) 1 L, Monocytes % (Manual) 4, Platelet Estimate Normal, RBC Morphology Normal, Sodium 135 L, Potassium 3.6, Chloride 106, Carbon Dioxide 20 L, Anion Gap 12.6, BUN 4 L, Creatinine 0.50 L, Estimated Creat Clear 131, Estimated GFR 1 46, Est GFR ( Amer) 177, Glucose 105 H, Calcium 9.0, Total Bilirubin 0.2, AST 29, ALT 23, Alkaline Phosphatase 98, Total Protein 6.7, Albumin 3.7, Globulin 3.0, Albumin/Globulin Ratio 1.2, RPR w/Rflx to Titer Nonreactive, Blood Type O Positive, Antibody Screen Negative I & O for Last 24 hours: Intake & Output 06/25/24 06/26/24 06/27/24 06/28/24 11:59 11:59 11:59 11:59 Weight 246 lb Constitutional Constitutional: no acute distress *Routine HEENT Exam Head: Present normocephalic *Routine Neck Exam Neck: Present full ROM *Routine Respiratory Exam Respiratory: Present normal respiratory effort; Absent accessory muscle use Results Data Completed and Pending Labs on day of discharge: Labs from last 24 hours 06/27/24 09:57 WBC 16.8 H RBC 4.28 Hgb 11.8 L Hct 35.8 L MCV 83.6 MCH 27.6 MCHC 33.0 RDW 12.8 Plt Count 275 MPV 10.6 H Neut % (Auto) 88.8 H Lymph % (Auto) 5.9 L [place] % (Auto) 4.6 Eos % (Auto) 0.1 Baso % (Auto) 0.1 Neut # (Auto) 15.0 H Lymph # (Auto) 1.0 [place] # (Auto) 0.8 Eos # (Auto) 0.0 Baso # (Auto) 0.0 Total Counted 100 Neutrophils % (Manual) 95 H Lymphocytes % (Manual) 1 L Monocytes % (Manual) 4 Platelet Estimate Normal RBC Morphology Normal Sodium 135 L Potassium 3.6 Chloride 106 Carbon Dioxide 20 L Anion Gap 12.6 BUN 4 L Creatinine 0.50 L Estimated Creat Clear 131 Estimated GFR 146 Est GFR ( Amer) 177 Glucose 105 H Calcium 9.0 Total Bilirubin 0.2 AST 29 ALT 23 Alkaline Phosphatase 98 Total Protein 6.7 Albumin 3.7 Globulin 3.0 Albumin/Globulin Ratio 1.2 RPR w/Rflx to Titer Nonreactive Blood Type O Positive Antibody Screen Negative DS: Diagnosis Discharge Diagnosis (1) labor with delivery in second trimester: Status: Acute Code(s): O60.12X0 - labor second trimester with delivery second trimester, not applicable or unspecified Qualifiers: Fetus number: single or unspecified fetus Qualified Code(s): O60.12X0 - labor second trimester with delivery second trimester, not applicable or unspecified (2) Abruptio placenta: Status: Acute Code(s): O45.90 - Premature separation of placenta, unspecified, unspecified trimester Qualifiers: Trimester: second trimester Qualified Code(s): O45.92 - Premature separation of placenta, unspecified, second trimester (3) Maternal obesity affecting , antepartum: Status: Acute Code(s): O99.210 - Obesity complicating , unspecified trimester Qualifiers: Obesity type affecting : unspecified obesity Qualified Code(s): O99.210 - Obesity complicating , unspecified trimester (4) , twin with loss of one fetus, antepartum: Status: Acute Problem details: Loss of baby B discovered on 8w6d ultrasound (5) History of miscarriage: Status: Acute Code(s): Z87.59 - Personal history of other complications of , childbirth and the puerperium Problem details: x 2 (6) Status post hysteroscopic resection of uterine septum: Status: Acute Code(s): Z98.891 - History of uterine scar from previous surgery Meds Home Medications and Allergies Home Medications ?Medication ?Instructions ?Recorded ?Confirmed ?Type vits no.126-ferrous fum 1 tab PO DAILY 03/04/24 06/27/24 History 28 mg iron-folic acid 800 mcg tablet (Classic ) nitrofurantoin 100 mg PO BID #14 caps 06/28/24 Rx monohydrate/macrocrystals 100 mg capsule (Macrobid) New Prescriptions to Start Prescriptions: nitrofurantoin monohyd/m-cryst [Macrobid] Roger Rivera Allergies Allergy/AdvReac Type Severity Reaction Status Date / Time acetaminophen (From Tylenol) Allergy Other Verified 06/19/24 14:00 Discharge Plan Disposition Patient Disposition: Home, Self-Care Discharge Order Discharge Orders: Discharge Order (Routine); Ordered 06/28/24 Ordered By: Roger Rivera Follow up Plan Prescriptions/Medication Reconciliation: New nitrofurantoin monohyd/m-cryst [Macrobid] 100 mg capsule 100 mg PO BID Qty: 14 0RF Rx Instructions: must administer with a meal/food Continued Classic 28 mg iron- 800 mcg tablet 1 tab PO DAILY Problem Reconciliation Problems Reviewed?: Yes Patient Discharge Instructions ACTIVITY: No heavy lifting DIET: continue same diet Patient Instructions: Depression, Hemorrhage, DI for Labor and Delivery, Vaginal , DI for Pre-eclampsia, [facility] Post Discharge Instructions Print Language: Belarusian Providers Primary Care Provider: Amanda Flowers Admit Provider: Justina Cm Attending Provider: Roger Rivrea
== END 2024-06-28 11:49 | disposition home or self-care (01) | DRG 805 ==
LOC: OBOUT 09:58 → OB 09:58
PROVIDERS: Admitting Provider Obstetrics & Gynecology; PCP Nurse Practitioner Family; Visit Provider Nurse Practitioner Obstetrics & Gynecology
DX: O60.12X0 Preterm labor second trimester with preterm delivery second trimester, not applicable or unspecified (principal); O45.92 Premature separation of placenta, unspecified, second trimester; Z37.0 Single live birth; Z3A.23 23 weeks gestation of pregnancy; O99.214 Obesity complicating childbirth
CPT/HCPCS: 59409; 76816; 80053; 80307; 81001; 84112; 85007; 85025; 86592; 86850; 87086; J0595; J2405; J7120

== ENCOUNTER 2024-07-22 15:30 | Outpatient (CLI) | payer BC, SELFPAY ==
[2024-07-22 16:21] LABS: Basophils % 0.4 % (0.1-2.0); Eosinophils # 0.2 K/mm3 (0.0-0.4); Eosinophils % 2.6 % (0.1-12.0); Hematocrit 37.9 % (37.0-47.0); Hemoglobin 12.1 g/dL (12.2-16.2); Lymphocytes # 2.2 K/mm3 (0.7-4.5); Lymphocytes % 26.8 % (10-50); Mean Corpuscular HGB Conc 31.9 g/dL (31.8-35.4); Mean Corpuscular Hemoglobin 26.7 pg (27.0-31.2); Mean Corpuscular Volume 83.7 fl (81-99); Mean Platelet Volume 9.5 fl (7.4-10.4); Monocytes # 0.9 K/mm3 (0.1-1.0); Monocytes % 10.7 % (1.7-9.3); Neutrophils # 4.8 K/mm3 (1.8-7.8); Platelet Count 297 K/mm3 (142-424); Red Blood Count 4.53 M/mm3 (4.20-5.40); Red Cell Distribution Width 12.5 % (11.5-17.5); White Blood Count 8.1 K/mm3 (4.8-10.8)
[2024-07-22 16:37] LABS: Activated Partial Thrombo Time 25.1 seconds (22.5-28.5); Fibrinogen 340 mg/dL (208.1-352.0); INR 0.85 (0.9-1.1); Prothrombin Time 9.5 seconds (9.2-12.1)
[2024-07-22 16:56] LABS: Alanine Aminotransferase 36 U/L (12-78); Albumin Level 4.1 g/dl (3.5-5.0); Albumin/Globulin Ratio 1.8 (1.1-1.8); Alkaline Phosphatase 73 U/L (38-126); Anion Gap 7.4 mEq/L (5-15); Aspartate Amino Transferase 31 U/L (14-36); Blood Urea Nitrogen 6 mg/dl (7-17); Calcium 9.9 mg/dl (8.4-10.2); Carbon Dioxide 26 mmol/L (22.0-30.0); Chloride 106 mmol/L (98-107); Estimated Glomerular Filt Rate 85 ml/min (>60); GFR (African American) 103 ML/MIN (>60); Globulin 2.3 g/dL (1.3-3.2); Glucose 91 mg/dl (74-100); Potassium 4.4 mmoL/L (3.5-5.1); Sodium 135 mmol/L (136-145); Total Protein,Serum 6.4 g/dl (6.3-8.2)
[2024-07-22 17:04] LABS: Bilirubin,Total 0.1 mg/dl (0.2-1.3)
[2024-07-22 18:09] LABS: Creatinine,Urine Random 126 mg/dL (Not Estab.)
[2024-07-22 18:33] LABS: Uric Acid 5.9 mg/dl (2.5-6.2)
== END 2024-07-22 23:59 | disposition home or self-care (01) ==
LOC: LAB 15:31
PROVIDERS: PCP Nurse Practitioner Family; Visit Provider Obstetrics & Gynecology
DX: R03.0 Elevated blood-pressure reading, without diagnosis of hypertension (principal); Z39.2 Encounter for routine postpartum follow-up; O60.12X0 Preterm labor second trimester with preterm delivery second trimester, not applicable or unspecified; Z87.59 Personal history of other complications of pregnancy, childbirth and the puerperium
CPT/HCPCS: 36415; 80053; 82570; 84156; 84550; 85025; 85384; 85610; 85730

== ENCOUNTER 2024-09-10 16:09 | Outpatient (CLI) | payer BC, SELFPAY ==
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
== END 2024-09-10 23:59 | disposition home or self-care (01) ==
LOC: RAD 16:09
PROVIDERS: PCP Nurse Practitioner Family; Visit Provider Student in an Organized Health Care Education/Training Program
DX: M54.9 Dorsalgia, unspecified (principal)
CPT/HCPCS: 72072; 72100

== ENCOUNTER 2024-10-16 13:00 | Outpatient (RCR) | payer BC, SELFPAY ==
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
== END 2024-10-16 23:59 | disposition home or self-care (01) ==
LOC: PT 13:00
PROVIDERS: PCP Nurse Practitioner Family; Visit Provider Nurse Practitioner Family
DX: M54.50 Low back pain, unspecified (principal)
CPT/HCPCS: 97163

== ENCOUNTER 2024-10-29 13:51 | Outpatient (CLI) | payer BC, SELFPAY ==
[2024-10-29 15:43] LABS: HCG,Quantitative < 2 mIU/ml (0-5.42)
[2024-10-30 12:11] LABS: Progesterone 0.2 ng/mL (.)
== END 2024-10-29 23:59 | disposition home or self-care (01) ==
PROVIDERS: PCP Nurse Practitioner Family; Visit Provider Obstetrics & Gynecology
DX: Z32.00 Encounter for pregnancy test, result unknown (principal); N92.6 Irregular menstruation, unspecified
CPT/HCPCS: 36415; 84144; 84702

== ENCOUNTER 2024-11-18 14:00 | Outpatient (RCR) | payer BC, SELFPAY | END 2024-11-18 23:59 | disposition home or self-care (01) | LOC: PT 14:00 | PROVIDERS: PCP Nurse Practitioner Family; Visit Provider Nurse Practitioner Family | DX: M54.50 Low back pain, unspecified (principal) | CPT/HCPCS: 97014; 97110; G0283 ==

== ENCOUNTER 2024-12-25 14:00 | Outpatient (RCR) | payer BC, SELFPAY ==
--- NOTE | 2024-12-25 14:53 | HMH.RHREAS ---
Rehab Reassessment Rehab OP Re-assessment Start: 12/11/24 13:03 Freq: Status: Active Protocol: Document 12/25/24 14:30 HANNAH (Rec: 12/25/24 14:52 HANNAH [id number]) E-signed By Randall Serrano, PT Rehab Re-assessment Subjective Subjective Pt reports 0% improvement. Reports no change in her symptoms. Reports frequent episodes of 8-9/10 pain. Pt reports that she has not returned to her dr. Objective Objective Notes CHEL: 25 (25 at last RA) AROM: - Lumbar flexion: WNL, painfree - Lumbar extension: 15, painful - L SBin - R SBin Lumbar Paraspinals 2/4 TTP L piriformis 2/4 TTP Assessment Progress Assessment No Progress Assessment Notes Pt has undergone 2 months of skilled PT focused on improving lumbar mobility, core stabilization, modalities prn and symptom modulation. Pt presents unchanged and has not responded to PT. Pt instructed to return to dr for further considerations. Patient goals met ST/5 LT/7 Plan Plan d/c from PT Frequency of Therapy 1/week Duration of Therapy 1 week Therapeutic Exercise Yes Including Home Exercise Program Manual Therapy Yes Techniques Neuromuscular Re- Yes education Therapeutic Yes Activities to Return to Previous Functional/Work Level Thermal Modalities Yes Electrical Yes Stimulation Time and Billing Re-Eval Time 10 Re-Eval Billing 0 Units Charge for PT No reassessment? PHYSICIAN CERTIFICATION: I certify the specified therapy services for Sarah Rehman are required, authorized, and reviewed every 30 days.
== END 2024-12-25 23:59 | disposition home or self-care (01) ==
LOC: PT 14:00
PROVIDERS: PCP Nurse Practitioner Family; Visit Provider Nurse Practitioner Family
DX: M54.50 Low back pain, unspecified (principal)
CPT/HCPCS: 97014; 97110; G0283

== ENCOUNTER 2025-01-07 09:30 | Outpatient (CLI) | payer OTHER, SELFPAY ==
--- OUTSIDE RECORDS SUMMARY | 2025-01-07 09:34 | XMS_ITS | Clinical Summary ---
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 Infertility management 07/13/2021 Overview (07/13/2021): Long history of trying to conceive. Had surgical revision of bicornuate uterus by Dr. Carlos in February 2019. Wants to consult with Dr. Allen for infertility evaluation. Screening for cervical cancer 07/13/2021 Overview (07/13/2021): Last Pap smear 2018?. Currently on menses. Will need Pap smear when returns for annual. Polycystic ovary syndrome Overview (07/13/2021): Long history of irregular menses. No recent laboratory evaluation. Will be following up with Dr. Carlos. Morbid obesity with BMI of 40.0-44.9, adult Irregular menses Overview (07/13/2021): Menses have become more regular over the past 6 to 8 months. Can do LH testing and timing of intercourse on day of ovulation. Dysmenorrhea Overview (07/13/2021): Long history of dysmenorrhea that begins prior to onset of menses. Menorrhagia with regular cycle Overview (07/13/2021): States menses are heavy 5 to 6 days of cycle. Pre-conception counseling Overview (07/13/2021): Rx vitamins sent to pharmacy. Hodan importance of folic acid supplementation. Chart menses and LH tests on BBT chart. Family History Medical History Relation Name Comments Diabetes Mother Relation Name Status Comments Mother Social History Tobacco Use Types Packs/Day Years Used Date Smoking Tobacco: Never Smokeless Tobacco: Never Alcohol Use Standard Drinks/Week Comments Never 0 (1 standard drink = 0.6 oz pur e alcohol) Abuse Screen Answer Date Recorded Unsafe at Home or Work/School Not on file Feels Threatened by Someone? Not on file 01/2023 Does Anyone Keep You from Co ntacting Others or Doint Things Outside the Home? Not on file 03/05/2023 Physical Sign of Abuse Present Not on file 1 Housing Stability Answer Date Recorded Current Living Arrangements Not on file 01/2023 Potentially Unsafe Housing Conditions Not on stephanie e 03/05/2023 Family and Community Support Answer [place] e Recorded Help with Day-to-Day Activities Not on file 03/05/2023 Lonely or Isolated Not on file 03/05/2023 Employment Answer Date Recorded Do you want help finding or keeping work or a marco b? Not on file 03/05/2023 Disabilities Answer Date Recorded Concentrating, Remembering, or Making Decisions Difficulty Not on file 03/05/2023 Doing Errands Independently Difficulty Not on fi le 03/05/2023 Education Answer Date Recorded Help with school or training? Not on file Preferred Language Not on file 03/05/2023 Comments No Sex and Gender Information Value Date Recorded Sex Assigned at Not on file Legal Sex Female 12:43 PM EDT Gender Identity Not on file Sexual Orientation Not on file Last Filed Vital Signs Vital Sign Reading Time Taken Comments Blood Pressure 128/84 07/13/2021 3:05 PM EST Pulse 83 06/04/2018 3:10 PM EST Temperature 37 C (98.6 F) 06/04/2018 3:10 PM EST Respiratory Rate 15 06/04/2018 3:10 PM EST Oxygen Saturation 99% 06/04/2018 3:10 PM EST Inhaled Oxygen Concentration - - Weight 103 kg (226 lb) 07/13/2021 3:05 PM EST Height 157.5 cm (5' 2 ) 07/13/2021 3:05 PM EST Body Mass Index 41.34 07/13/2021 3:05 PM EST Plan of Treatment Health Maintenance Due Date Last Done Comments Annual Gynecologic Pelvic an d Breast Exam 1994 TDAP/TD VACCINES (1 - Tdap) 2013 ANNUAL PHYSICAL 06/04/2018 HEPATITIS C SCREENING 06/04/2018 COVID-19 Vaccine (2023-2 5 season) 2024 INFLUENZA VACCINE 02/25/2025 Pneumococcal Vaccine 0-49 Aged Out No longer eligible based on patient's age to complete this topic Insurance [employer] Care Teams Hazardous Materials Driver Relationship Specialty Start Date End Date Tova Isaac MD [address] [facility] [address] [place] [address] PCP - General Obstetrics 07/20/16
--- NOTE | 2025-01-07 10:00 | US_ITS ---
PROCEDURE: US TRANSVAGINAL CLINICAL INDICATION: abnormal uterine bleeding COMPARISON: No exams were available for comparison FINDINGS: Transvaginal sonographic images of the pelvis were obtained. UTERUS: 7.9 cm x 4.4cmx 3.8 cm with a combined endometrial thickness of 15.1mm. There is a small amount of fluid in the lower uterine segment. LEFT OVARY: 3.4cmx2.2cmx2.2cm with a volume of 8.5ml. There are multiple small peripheral follicles giving the ovary a polycystic appearance. RIGHT OVARY: 3.1cmx 2.5cmx2.3cm with a volume of 9.1ml. The right ovary is difficult to visualize secondary to bowel gas. Both ovaries are seen and appear normal. Doppler flow to both ovaries are seen. There is no fluid in the cul-de-sac. IMPRESSION: 1. Anteverted uterus normal in shape and size. The endometrium is markedly thickened measuring 15.1 mm. There is a small amount of fluid in the lower uterine segment. Suggest repeat scan after menses. Endometrial sampling would be warranted if no resolution of the thickening. 2. The left ovary appears normal and contains multiple small peripheral follicles giving it a polycystic appearance. The right ovary is not well visualized secondary to bowel gas. 3. No fluid in the cul-de-sac. Dictated by: Roger Rivera MD 01/07/2025 11:10 Roger Rivera MD in OV 01/07/2025 11:10
[2025-01-07 10:45] LABS: Hematocrit 39.4 % (37.0-47.0); Hemoglobin 12.7 g/dL (12.2-16.2); Immature Granulocytes % 0.4 %; Mean Corpuscular HGB Conc 32.2 g/dL (31.8-35.4); Mean Corpuscular Hemoglobin 27.0 pg (27.0-31.2); Mean Corpuscular Volume 83.8 fl (81-99); Nucleated Red Blood Cells % 0 %; Platelet Count 332 K/mm3 (142-424); Red Blood Count 4.70 M/mm3 (4.20-5.40); Red Cell Distribution Width-SD 39.9 fL; White Blood Count 8.3 K/mm3 (4.8-10.8)
[2025-01-07 11:33] LABS: 25-OH Vitamin D, Total 23.6 ng/mL (30-100); Albumin Level 4.1 g/dl (3.5-5.0); Chloride 104 mmol/L (98-107); Sodium 138 mmol/L (136-145)
[2025-01-07 11:34] LABS: Potassium 4.3 mmoL/L (3.5-5.1)
[2025-01-07 11:36] LABS: Alanine Aminotransferase 55 U/L (12-78); Albumin/Globulin Ratio 1.6 (1.1-1.8); Alkaline Phosphatase 90 U/L (38-126); Anion Gap 13.3 mEq/L (5-15); Aspartate Amino Transferase 40 U/L (14-36); Bilirubin,Total 0.2 mg/dl (0.2-1.3); Blood Urea Nitrogen 7 mg/dl (7-17); Carbon Dioxide 25 mmol/L (22.0-30.0); Cholesterol 190 mg/dl (140-200); Creatinine,Serum 0.60 mg/dl (0.52-1.04); Estimated Glomerular Filt Rate 117 ml/min (>60); GFR (African American) 142 ML/MIN (>60); Globulin 2.6 g/dL (1.3-3.2); Glucose 105 mg/dl (74-100); Total Protein,Serum 6.7 g/dl (6.3-8.2); Triglycerides 128 mg/dl (30-150)
[2025-01-07 11:37] LABS: Calcium 9.4 mg/dl (8.4-10.2); HDL Cholesterol 49 mg/dl (40-60)
[2025-01-07 12:06] LABS: Thyroid Stimulating Hormone 2.05 uIU/mL (0.465-4.68)
[2025-01-07 12:21] LABS: Hemoglobin A1C 6.0 % (4.0-6.0)
[2025-01-08 10:22] LABS: Insulin Level Total 44.0 uIU/mL (2.6-24.9)
[2025-01-08 12:12] LABS: FSH 5.1 mIU/mL (.); LH 8.4 mIU/mL (.); Testosterone,Total 52 ng/dL (13-71)
== END 2025-01-07 23:59 | disposition home or self-care (01) ==
LOC: RAD 09:31
PROVIDERS: PCP Nurse Practitioner Family; Visit Provider Obstetrics & Gynecology
DX: E28.2 Polycystic ovarian syndrome (principal); R93.89 Abnormal findings on diagnostic imaging of other specified body structures
CPT/HCPCS: 36415; 76830; 80053; 80061; 82306; 82670; 83001; 83002; 83036; 83525; 84144; 84403; 84443; 85025

== ENCOUNTER 2025-04-06 14:22 | Outpatient (CLI) | payer OTHER, SELFPAY ==
--- NOTE | 2025-04-06 14:24 | XR_ITS ---
FINAL REPORT CLINICAL HISTORY: LUQ pain nausea FINDINGS: ABDOMEN COMPLETE INCL DECUB/ERECT There is a nonspecific, nonobstructive bowel gas pattern. No abnormal dilatation is identified. There is no abnormal calcification. No free air is identified. IMPRESSION: No acute process. Reviewed, Interpreted and Dictated by Ranulfo Lawrence MD Transcribed by Diane Kirby Authenticated and [facility][1]
--- OUTSIDE RECORDS SUMMARY | 2025-04-06 14:24 | XMS_ITS | Clinical Summary ---
Author Organization [facility] Address [address] [place] [address] Care Team Providers Care Family Court Counsellor Name Role Phone Tova Isaac MD Primary Care Provider [phone] Allergies Active Allergy Reactions Criticality Noted Date [...] ANNUAL PHYSICAL 06/04/2018 HEPATITIS C SCREENING 06/04/2018 INFLUENZA VACCINE 12/26/2024 Pneumococcal Vaccine 0-49 Aged Out No longer eligible based on patient's age to complete this topic Insurance HUMAN Care Teams Family Court Counsellor Relationship Specialty Start Date End Date Tova Isaac MD [address] [facility] [address] [place] [address] PCP - General Obstetrics 07/20/16
[2025-04-06 17:44] LABS: Microscopic, Urine URINE MICROSCOPIC (MICROSCOPIC)
[2025-04-06 18:36] LABS: Hematocrit 42.9 % (37.0-47.0); Hemoglobin 13.8 g/dL (12.2-16.2); Immature Granulocytes % 0.3 %; Mean Corpuscular HGB Conc 32.2 g/dL (31.8-35.4); Mean Corpuscular Hemoglobin 27.1 pg (27.0-31.2); Mean Corpuscular Volume 84.3 fl (81-99); Nucleated Red Blood Cells % 0 %; Platelet Count 371 K/mm3 (142-424); Red Blood Count 5.09 M/mm3 (4.20-5.40); Red Cell Distribution Width-SD 41.7 fL; White Blood Count 7.9 K/mm3 (4.8-10.8)
[2025-04-06 18:39] LABS: Bilirubin,Urine Negative (Negative); Color,Urine YELLOW (Yellow); Glucose,Urine (UA) Negative (Negative); Ketones,Urine Negative (Negative); Leukocyte Esterase,Urine Negative (Negative); PH,Urine 5.5 (5.0-8.5); Protein,Urine Negative (Negative); Urobilinogen,Urine 0.2 EU/dl (0.2)
[2025-04-06 18:41] LABS: Urine Pregnancy, HCG Qual. Negative (Negative)
[2025-04-06 18:57] LABS: Specific Gravity, Urine 1.028 (1.005-1.030)
[2025-04-06 19:10] LABS: Amorphous Sediment,Urine 4+ /lpf; Bacteria,Urine 4+ /lpf; RBC,Urine Occasional #/hpf (0-3)
[2025-04-06 20:00] LABS: Alanine Aminotransferase 89 U/L (12-78); Albumin Level 4.6 g/dl (3.5-5.0); Albumin/Globulin Ratio 1.4 (1.1-1.8); Alkaline Phosphatase 90 U/L (38-126); Amylase 53 U/L (30-110); Anion Gap 13.6 mEq/L (5-15); Aspartate Amino Transferase 55 U/L (14-36); Bilirubin,Total 0.4 mg/dl (0.2-1.3); Blood Urea Nitrogen 6 mg/dl (7-17); Calcium 9.9 mg/dl (8.4-10.2); Carbon Dioxide 24 mmol/L (22.0-30.0); Chloride 104 mmol/L (98-107); Creatinine,Serum 0.80 mg/dl (0.52-1.04); Estimated Glomerular Filt Rate 84 ml/min (>60); GFR (African American) 102 ML/MIN (>60); Globulin 3.4 g/dL (1.3-3.2); Glucose 74 mg/dl (74-100); Lipase 49 U/L (23-300); Potassium 4.6 mmoL/L (3.5-5.1); Sodium 137 mmol/L (136-145); Total Protein,Serum 8.0 g/dl (6.3-8.2)
[2025-04-06 20:06] LABS: C-Reactive Protein 7.4 mg/L (0-4)
== END 2025-04-06 23:59 | disposition home or self-care (01) ==
LOC: RAD 14:23
PROVIDERS: PCP Nurse Practitioner Family; Visit Provider Nurse Practitioner Family
DX: R10.12 Left upper quadrant pain (principal); E66.01 Morbid (severe) obesity due to excess calories; Z68.42 Body mass index [BMI] 45.0-49.9, adult; R11.2 Nausea with vomiting, unspecified; R41.3 Other amnesia; R53.83 Other fatigue
CPT/HCPCS: 74019; 80053; 81001; 81025; 82150; 83690; 85025; 85651; 86140; 87086; 87088

== ENCOUNTER 2025-04-10 07:58 | Outpatient (CLI) | payer OTHER, SELFPAY ==
--- NOTE | 2025-04-10 08:00 | US_ITS ---
FINAL REPORT TECHNIQUE: Multiple transverse and longitudinal images CLINICAL HISTORY: abd pain, elevated LFTs FINDINGS: There is cholesterolosis without gallstones. There is no gallbladder wall thickening. No biliary ductal dilatation is appreciated. No fluid collections are seen. No signs liver is fatty infiltrated. Limited portions of the right kidney are unremarkable. Pancreas is largely obscured. IMPRESSION: 1. No evidence of cholelithiasis 2. No evidence of biliary obstruction 3. Fatty infiltration of the liver. Reviewed, Interpreted and Dictated by Ranulfo Lawrence MD Transcribed by Ros Nevarez Authenticated and [facility]
--- OUTSIDE RECORDS SUMMARY | 2025-04-10 08:01 | XMS_ITS | Patient Health Record ---
Author Organization [facility] Address [address] [facility] [address] [place] [address] Care Team Providers Care Graduate Teaching Associate Name Role Phone Tova Isaac [phone] Allergies Allergen (clinical drug ingredient) Drug/Non Drug Allergy documented on EMR Reaction Allergy Type Onset Date Status acetaminophen TYLENOL (uncoded) Unspecified Allergy 2016 Active Reason For Referral No Information Social History Social History Additional Details Category Social Info Options Details Miscellaneous: Caffeine: CAFFEINE USE: 2 Problems Problem Type SNOMED Code ICD Code Onset Dates Problem Status W/U Status Risk Notes Problem Polycystic bilateral ovaries (disorder) (288814412) Bilateral polycystic ovarian syndrome (E28.2) 017 Active confirmed Polycystic ovarian disease Problem Gynecological examination normal (907566133684408 ) Cervical smear, as part of routine gynecological examination (Z01.419) 017 Active confirmed Annual without abnormal findings Plan Of Treatment No Information Medical (General) History Medical History History ICD Code MENSTR FLOW: Heavy ABORTIONS: 0 SOCIAL HX: Patient has never smoked. Passive Smoke: N Alcohol Use: Y Drug Use: N HIV/High Risk: N Regular Exercise: N SOCIAL HX: Patient has never smoked. Passive Smoke: N Alcohol Use: Y Drug Use: N HIV/High Risk: N Regular Exercise: N Anxiety Female Problems Frequent Headaches Obesity Pneumonia or Bronchitis Urinary Tract Infections PCOS A Routine PROVERA 10 MG ORAL TABLET, ORAL Surgical History Surgery Date(Month/Year) baljinder removed
--- OUTSIDE RECORDS SUMMARY | 2025-04-10 08:01 | XMS_ITS | Clinical Summary ---
Author Organization [facility] Address [address] [place] [address] Care Team Providers Care Chemistry Technologist Name Role Phone Tova Isaac MD Primary Care Provider [phone] Allergies Active Allergy Reactions Criticality Noted Date [...] complete this topic Insurance HUMAN Care Teams Chemistry Technologist Relationship Specialty Start Date End Date Tova Isaac MD [address] [facility] [address] [place] [address] PCP - General Obstetrics 07/20/16
== END 2025-04-10 23:59 | disposition home or self-care (01) ==
LOC: RAD 07:59
PROVIDERS: PCP Nurse Practitioner Family; Visit Provider Nurse Practitioner Family
DX: K76.0 Fatty (change of) liver, not elsewhere classified (principal); R11.2 Nausea with vomiting, unspecified; R10.9 Unspecified abdominal pain; R74.8 Abnormal levels of other serum enzymes
CPT/HCPCS: 76705